=== PATIENT | female | born 1990 | race Caucasian/White ===

== ENCOUNTER 2016-06-01 15:32 | Inpatient (IN) | payer MEDICAID ==
[~2016-06-01] VITALS: Ht 165.1 cm; Wt 75.5 kg
[~2016-06-01 15:32] MED LIST: ARIP15TA3 PO; GABA-529 PO; GABA-533 PO; LITH300C3 PO; QUET100T33 PO; QUET25TA34 PO; VIST50 PO
[2016-06-01 16:07] VITALS: BP 129/70
[2016-06-01] MEDS ORDERED: QUET300T2 PO (16:40)
[2016-06-01] MEDS ORDERED: BUSP15 PO (16:40)
[2016-06-01] MEDS ORDERED: LITH600 PO (16:40)
[2016-06-01] MEDS ORDERED: QUET100T PO (16:40)
[2016-06-01] MEDS ORDERED: GABA-533 PO (16:40)
[2016-06-01 17:07] VITALS: BP 137/89
[2016-06-01] MEDS: LORazepam 2 MG TABLET PO PRN (17:24)
[2016-06-01] MEDS: OLANZapine 5 MG TABLET PO SCH (20:36)
[2016-06-01] MEDS: ZOLPIDEM TARTRATE 10 MG TABLET PO PRN (20:39)
[2016-06-02 06:35] VITALS: BP 112/61
[2016-06-02 08:01] LABS: BASOPHILS % (AUTO) 0.3 % (0.0-2.0); EOSINOPHILS % (AUTO) 3.6 % (1.0-6.0); HEMATOCRIT 38.3 % (36-46); HEMOGLOBIN 12.6 g/dL (12.0-16.0); LYMPHOCYTES # (AUTO) 2.6 K/uL (1.0-4.8); LYMPHOCYTES % (AUTO) 37.8 % (22.0-44.0); MEAN CORPUSCULAR HEMOGLOBIN 30.2 pg (26.0-34.0); MEAN CORPUSCULAR HGB CONC 32.8 G/dL (31.0-37.0); MEAN CORPUSCULAR VOLUME 92 fL (80-100); MONOCYTES # (AUTO) 0.8 K/uL (0.1-1.0); MONOCYTES % (AUTO) 11.8 % (2.0-9.0); NEUTROPHILS # (AUTO) 3.2 K/uL (1.8-7.7); NEUTROPHILS % (AUTO) 46.5 % (40.0-70.0); PLATELET COUNT (AUTO) 247 K/uL (150-450); RED BLOOD CELL COUNT(AUTO) 4.16 MIL/uL (4.00-5.20); RED CELL DISTRIBUTION WIDTH 12.8 % (11.5-14.5); WHITE BLOOD COUNT (AUTO) 6.9 K/uL (4.5-11.0)
[2016-06-02 08:18] VITALS: BP 112/67
[2016-06-02 08:21] LABS: ALANINE AMINOTRANSFERASE 58 U/L (12-78); ALBUMIN 3.6 g/dL (3.4-5.0); ANION GAP 9 mmol/L (8-16); ASPARTATE AMINOTRANSFERASE 23 U/L (15-37); BILIRUBIN,TOTAL 0.4 mg/dL (0.1-1.0); CALCIUM, TOTAL 8.9 mg/dL (8.8-10.5); CARBON DIOXIDE 26 mmol/L (22-29); CHLORIDE 106 mmol/L (98-107); CREATININE 0.81 mg/dL (0.60-1.30); GLOMERULAR FILTR. RATE CALC > 60 mL/min (>60); POTASSIUM 4.1 mmol/L (3.5-5.1); SODIUM SERUM 141 mmol/L (136-145); THYROID STIMULATING HORMONE 1.89 uIU/mL (0.36-3.74); TOTAL PROTEIN, SERUM 6.5 g/dL (6.4-8.2); UREA NITROGEN, BLOOD 9 mg/dL (7-18)
[2016-06-02 08:35] LABS: GLUCOSE, URINE (UA) NEGATIVE (NEGATIVE); KETONES,URINE NEGATIVE (NEGATIVE); LEUKOCYTE ESTERASE ,URINE NEGATIVE (NEGATIVE); OCCULT BLOOD,URINE NEGATIVE (NEGATIVE); PH,URINE 6.5 (5.0-8.0); PROTEIN,URINE NEGATIVE (NEGATIVE)
[2016-06-02 08:36] LABS: ADD UA MICROSCOPIC NO; APPEARANCE,URINE HAZY (CLEAR)
[2016-06-02] MEDS ORDERED: NICOTINE 14 MG/24 HOUR PATCH TD SCH (09:00)
[2016-06-02] MEDS ORDERED: FLUoxetine HCL 20 MG CAPSULE PO SCH (09:00)
[2016-06-02] MEDS: LITHIUM CARBONATE 300 MG CAPSULE PO SCH ×3 (09:35→17:05)
[2016-06-02] MEDS: LORazepam 2 MG TABLET PO PRN ×2 (09:42→15:47)
[2016-06-02] MEDS: QUEtiapine FUMARATE 100 MG TABLET PO PRN (10:15)
[2016-06-02 16:11] VITALS: BP 119/70
[2016-06-02] MEDS: OLANZapine 5 MG TABLET PO SCH (20:38)
[2016-06-02] MEDS: ZOLPIDEM TARTRATE 10 MG TABLET PO PRN (20:42)
[2016-06-03 00:18] VITALS: BP 101/62
[2016-06-03 07:01] VITALS: BP 118/160
[2016-06-03 08:05] VITALS: BP 112/54
[2016-06-03] MEDS: LITHIUM CARBONATE 300 MG CAPSULE PO SCH ×3 (08:48→17:12)
[2016-06-03] MEDS: FLUoxetine HCL 20 MG CAPSULE PO SCH (08:48)
[2016-06-03] MEDS: NICOTINE 21 MG/24 HOUR PATCH TD SCH (08:49)
[2016-06-03] MEDS: LORazepam 2 MG TABLET PO PRN ×3 (13:21→22:58)
[2016-06-03 16:20] VITALS: BP 125/75
[2016-06-03] MEDS: OLANZapine 5 MG TABLET PO SCH (20:36)
[2016-06-03] MEDS: ZOLPIDEM TARTRATE 10 MG TABLET PO PRN (20:36)
[2016-06-03] MEDS: QUEtiapine FUMARATE 100 MG TABLET PO PRN (21:21)
[2016-06-04 01:02] VITALS: BP 128/90
[2016-06-04 08:25] VITALS: BP 106/64
[2016-06-04] MEDS: FLUoxetine HCL 20 MG CAPSULE PO SCH (08:44)
[2016-06-04] MEDS: LITHIUM CARBONATE 300 MG CAPSULE PO SCH ×3 (08:44→16:06)
[2016-06-04] MEDS: NICOTINE 21 MG/24 HOUR PATCH TD SCH (08:44)
[2016-06-04] MEDS: LORazepam 2 MG TABLET PO PRN (11:15)
[2016-06-04 16:03] VITALS: BP 118/74
[2016-06-04] MEDS: OLANZapine 5 MG TABLET PO SCH (20:14)
[2016-06-04] MEDS: ZOLPIDEM TARTRATE 10 MG TABLET PO PRN (20:44)
[2016-06-05 06:33] VITALS: BP 127/80
[2016-06-05 08:03] VITALS: BP 122/61
[2016-06-05] MEDS ORDERED: OLAN5TAB2 PO (08:30)
[2016-06-05] MEDS: LITHIUM CARBONATE 300 MG CAPSULE PO SCH (08:30)
[2016-06-05] MEDS: FLUoxetine HCL 20 MG CAPSULE PO SCH (08:30)
[2016-06-05] MEDS: NICOTINE 21 MG/24 HOUR PATCH TD SCH (08:30)
[2016-06-05] MEDS ORDERED: FLUO-191 PO (08:30)
[2016-06-05] MEDS ORDERED: ACETAMINOPHEN 500 MG TABLET PO PRN (11:30)
== END 2016-06-05 11:15 | disposition home or self-care (01) | DRG 751 ==
LOC: B2S 16:27
PROVIDERS: ADMIT Psychiatry & Neurology Psychiatry; ATTEND Psychiatry & Neurology Psychiatry
DX: F33.2 Major depressive disorder, recurrent severe without psychotic features (principal); R45.851 Suicidal ideations; F15.20 Other stimulant dependence, uncomplicated; F41.9 Anxiety disorder, unspecified; F60.3 Borderline personality disorder; F17.200 Nicotine dependence, unspecified, uncomplicated; Z71.51 Drug abuse counseling and surveillance of drug abuser; Z97.5 Presence of (intrauterine) contraceptive device; Z88.0 Allergy status to penicillin; Z88.1 Allergy status to other antibiotic agents; Z88.8 Allergy status to other drugs, medicaments and biological substances; Z62.819 Personal history of unspecified abuse in childhood; Z91.5 Personal history of self-harm; Z87.440 Personal history of urinary (tract) infections; Z81.1 Family history of alcohol abuse and dependence; Z81.3 Family history of other psychoactive substance abuse and dependence
CPT/HCPCS: 80307; 84443

== ENCOUNTER 2018-03-07 17:15 | Inpatient (IN) | payer MEDICARE, MEDICAID ==
[~2018-03-07] VITALS: Ht 167.6 cm; Wt 54.4 kg
[~2018-03-07 17:15] MED LIST changes: -ARIP15TA3 PO; +FLUO-191 PO; -GABA-529 PO; -GABA-533 PO; -LITH300C3 PO; +LITH600 PO; +OLAN5TAB2 PO; -QUET100T33 PO; -QUET25TA34 PO; -VIST50 PO
[2018-03-07 18:27] VITALS: BP 114/71
[2018-03-07] MEDS ORDERED: HALOPERIDOL 5 MG TABLET PO PRN (19:00)
[2018-03-07 19:30] VITALS: BP 114/85
[2018-03-07] MEDS ORDERED: IBUPROFEN 400 MG TABLET PO PRN (20:15)
[2018-03-07] MEDS ORDERED: GuaiFENesin/D-METHORPHAN [SUGAR-FREE] 200-20MG/10 ML SYRUP UDCUP PO PRN (20:15)
[2018-03-07] MEDS ORDERED: ACETAMINOPHEN 325 MG TABLET PO PRN (20:15)
[2018-03-07] MEDS ORDERED: MAGNESIUM HYDROXIDE SUSPENSION 30 ML UDCUP PO PRN (20:15)
[2018-03-07] MEDS ORDERED: ALBUTEROL SULFATE HFA 90 MCG/PUFF 8 GM INHALER IH PRN (20:15)
[2018-03-07] MEDS ORDERED: PETROLATUM,WHITE 71 GM JELLY TP PRN (20:15)
[2018-03-07] MEDS ORDERED: ONDANSETRON HCL 4 MG TABLET PO PRN (20:15)
[2018-03-07] MEDS ORDERED: MAG HYDROX/AL HYDROX/SIMETH ES 30 ML SUSPENSION UDCUP PO PRN (20:15)
[2018-03-07] MEDS ORDERED: DOCUSATE SODIUM 100 MG CAPSULE PO PRN (20:15)
[2018-03-07] MEDS ORDERED: LOPERAMIDE HCL 2 MG CAPSULE PO PRN (20:15)
[2018-03-07] MEDS ORDERED: CloNIDine HCL 0.1 MG TABLET PO PRN (20:15)
[2018-03-07 20:30] VITALS: BP 111/60
[2018-03-07 21:30] VITALS: BP 111/63
[2018-03-07 22:36] VITALS: BP 110/65
[2018-03-08] VITALS (7 sets, daily range): BP systolic 103–122; BP diastolic 56–76
[2018-03-08 07:22] LABS: BASOPHILS % (AUTO) 0.6 % (0.0-2.0); EOSINOPHILS % (AUTO) 5.4 % (1.0-6.0); HEMATOCRIT 35.8 % (36-46); LYMPHOCYTES # (AUTO) 2.4 K/uL (1.0-4.8); LYMPHOCYTES % (AUTO) 43.4 % (22.0-44.0); MEAN CORPUSCULAR HEMOGLOBIN 29.8 pg (26.0-34.0); MEAN CORPUSCULAR HGB CONC 33.5 G/dL (31.0-37.0); MEAN CORPUSCULAR VOLUME 89 fL (80-100); MONOCYTES # (AUTO) 0.6 K/uL (0.1-1.0); MONOCYTES % (AUTO) 10.8 % (2.0-9.0); NEUTROPHILS # (AUTO) 2.2 K/uL (1.8-7.7); NEUTROPHILS % (AUTO) 39.8 % (40.0-70.0); PLATELET COUNT (AUTO) 325 K/uL (150-450); RED BLOOD CELL COUNT(AUTO) 4.02 MIL/uL (4.00-5.20); RED CELL DISTRIBUTION WIDTH 13.9 % (11.5-14.5)
[2018-03-08 07:59] LABS: ALANINE AMINOTRANSFERASE 240 U/L (12-78); ALBUMIN 3.3 g/dL (3.4-5.0); ALKALINE PHOSPHATASE 114 U/L (46-116); ANION GAP 5 mmol/L (8-16); ASPARTATE AMINOTRANSFERASE 190 U/L (15-37); BILIRUBIN,TOTAL 0.3 mg/dL (0.1-1.0); CALCIUM, TOTAL 8.7 mg/dL (8.8-10.5); CARBON DIOXIDE 31 mmol/L (22-29); CHLORIDE 104 mmol/L (98-107); CHOL/HDL RATIO 2.7 (3.9-5.7); CHOLESTEROL 152 mg/dL (131-200); CREATININE 0.76 mg/dL (0.60-1.30); FREE T4 (FREE THYROXINE) 0.85 ng/dL (0.76-1.46); GLOMERULAR FILTR. RATE CALC > 60 mL/min (>60); GLUCOSE,RANDOM 84 mg/dL (70-110); HCG,QUANTITATIVE < 1 mIU/mL (0-6); HDL CHOLESTEROL 56 mg/dL (40-60); LDL CHOL (CALC.) 76 mg/dL (0-130); POTASSIUM 4.4 mmol/L (3.5-5.1); SODIUM SERUM 140 mmol/L (136-145); THYROID STIMULATING HORMONE 0.42 uIU/mL (0.36-3.74); TOTAL PROTEIN, SERUM 6.6 g/dL (6.4-8.2); TRIGLYCERIDES 102 mg/dL (15-150); UREA NITROGEN, BLOOD 19 mg/dL (7-18)
[2018-03-08 08:01] LABS: HEMOGLOBIN A1C 5.5 % (4.5-6.2)
[2018-03-08] MEDS: METHADONE HCL 10 MG TABLET PO SCH (12:40)
[2018-03-08] MEDS: LORazepam 2 MG TABLET PO PRN (13:39)
[2018-03-08] MEDS: NICOTINE 14 MG/24 HOUR PATCH TD PRN (13:39)
[2018-03-08] MEDS: MIRTAZAPINE 15 MG TABLET PO SCH (20:34)
[2018-03-09 01:42] VITALS: BP 124/80
[2018-03-09 08:19] VITALS: BP 107/63
[2018-03-09] MEDS: ARIPiprazole 10 MG TABLET PO SCH (08:29)
[2018-03-09] MEDS: METHADONE HCL 10 MG TABLET PO SCH (08:29)
[2018-03-09 08:59] VITALS: BP 107/63
[2018-03-09 16:00] VITALS: BP 100/61
[2018-03-09 16:11] VITALS: BP 100/61
[2018-03-09] MEDS: MIRTAZAPINE 15 MG TABLET PO SCH (20:37)
[2018-03-10 04:08] VITALS: BP 115/74
[2018-03-10 08:01] VITALS: BP 130/79
[2018-03-10] MEDS: ARIPiprazole 10 MG TABLET PO SCH (08:08)
[2018-03-10] MEDS: METHADONE HCL 10 MG TABLET PO SCH (08:09)
[2018-03-10 08:12] VITALS: BP 130/79
[2018-03-10 16:29] VITALS: BP_SYST 100; BP_SYST 92; BP_DIAS 49; BP_DIAS 61
[2018-03-10] MEDS ORDERED: MIRTAZAPINE 30 MG TABLET PO SCH (21:00)
[2018-03-10 21:14] VITALS: BP 125/81
[2018-03-11] VITALS (11 sets, daily range): BP systolic 104–120; BP diastolic 60–81
[2018-03-11] MEDS ORDERED: ARIPiprazole 15 MG TABLET PO SCH (09:00)
[2018-03-11] MEDS ORDERED: CloNIDine HCL 0.1 MG TABLET PO PRN (11:00)
[2018-03-11] MEDS ORDERED: HydrOXYzine PAMOATE 50 MG CAPSULE PO PRN (11:00)
[2018-03-11] MEDS: CloNIDine HCL 0.1 MG TABLET PO SCH ×3 (12:55→20:45)
[2018-03-11] MEDS: MIRTAZAPINE 30 MG TABLET PO SCH (20:46)
[2018-03-11] MEDS ORDERED: MIRTAZAPINE 30 MG TABLET PO SCH (21:00)
[2018-03-12] VITALS (7 sets, daily range): BP systolic 91–116; BP diastolic 58–74
[2018-03-12] MEDS: CloNIDine HCL 0.1 MG TABLET PO SCH ×4 (06:15→21:28)
[2018-03-12] MEDS: ARIPiprazole 10 MG TABLET PO SCH (08:25)
[2018-03-12] MEDS: LORazepam 2 MG TABLET PO PRN (17:54)
[2018-03-12] MEDS: NICOTINE 14 MG/24 HOUR PATCH TD PRN (18:59)
[2018-03-12] MEDS: MIRTAZAPINE 30 MG TABLET PO SCH (20:31)
[2018-03-13] MEDS: CloNIDine HCL 0.1 MG TABLET PO SCH ×4 (06:00→21:10)
[2018-03-13 06:25] VITALS: BP 95/60
[2018-03-13] MEDS: ARIPiprazole 10 MG TABLET PO SCH (08:52)
[2018-03-13 09:01] VITALS: BP 108/60
[2018-03-13 12:35] VITALS: BP 101/63
[2018-03-13] MEDS: LORazepam 2 MG TABLET PO PRN (16:14)
[2018-03-13 16:39] VITALS: BP 119/66
[2018-03-13] MEDS ORDERED: HydrOXYzine PAMOATE 25 MG CAPSULE PO PRN (17:45)
[2018-03-13 21:10] VITALS: BP 106/62
[2018-03-13] MEDS: MIRTAZAPINE 30 MG TABLET PO SCH (21:10)
[2018-03-13] MEDS: QUEtiapine FUMARATE 200 MG TABLET PO SCH (21:10)
[2018-03-14] VITALS (8 sets, daily range): BP systolic 106–123; BP diastolic 60–77
[2018-03-14] MEDS: LORazepam 2 MG TABLET PO PRN ×3 (00:06→21:08)
[2018-03-14] MEDS: ZOLPIDEM TARTRATE 10 MG TABLET PO PRN (00:06)
[2018-03-14] MEDS: CloNIDine HCL 0.1 MG TABLET PO SCH ×4 (06:00→21:43)
[2018-03-14] MEDS ORDERED: QUEtiapine FUMARATE 100 MG TABLET PO SCH (09:00)
[2018-03-14] MEDS: QUEtiapine FUMARATE 100 MG TABLET PO SCH (16:22)
[2018-03-14] MEDS: QUEtiapine FUMARATE 200 MG TABLET PO SCH (20:30)
[2018-03-14] MEDS: MIRTAZAPINE 30 MG TABLET PO SCH (20:32)
[2018-03-14] MEDS ORDERED: METHADONE HCL 10 MG TABLET PO ONE (22:00)
[2018-03-15] VITALS (7 sets, daily range): BP systolic 100–119; BP diastolic 60–68
[2018-03-15] MEDS: CloNIDine HCL 0.1 MG TABLET PO SCH ×4 (06:20→21:24)
[2018-03-15] MEDS: QUEtiapine FUMARATE 100 MG TABLET PO SCH ×2 (08:24→17:01)
[2018-03-15] MEDS: METHADONE HCL 10 MG TABLET PO SCH (08:24)
[2018-03-15 09:25] LABS: APPEARANCE,URINE CLEAR (CLEAR); BILIRUBIN,URINE NEGATIVE (NEGATIVE); GLUCOSE, URINE (UA) NEGATIVE (NEGATIVE); KETONES,URINE NEGATIVE (NEGATIVE); LEUKOCYTE ESTERASE ,URINE SMALL (NEGATIVE); NITRATE,URINE NEGATIVE (NEGATIVE); OCCULT BLOOD,URINE NEGATIVE (NEGATIVE); PROTEIN,URINE NEGATIVE (NEGATIVE); UROBILINOGEN,URINE 0.2 mg/dL (<=1.0)
[2018-03-15 09:43] LABS: BACTERIA,URINE None Seen /HPF (None Seen); RBC,URINE None Seen /HPF (0-2)
[2018-03-15 09:44] LABS: RENAL EPITHELIAL CELLS,URINE Few /LPF (None Seen); SQUAMOUS EPITHELIAL CELL,UR Few /LPF (None Seen)
[2018-03-15] MEDS: MIRTAZAPINE 30 MG TABLET PO SCH (21:24)
[2018-03-15] MEDS: QUEtiapine FUMARATE 200 MG TABLET PO SCH (21:24)
[2018-03-16 00:20] VITALS: BP 114/64
[2018-03-16] MEDS: LORazepam 2 MG TABLET PO PRN (03:44)
[2018-03-16] MEDS: CloNIDine HCL 0.1 MG TABLET PO SCH ×4 (06:01→21:02)
[2018-03-16 08:14] VITALS: BP 108/62
[2018-03-16] MEDS: METHADONE HCL 10 MG TABLET PO SCH (10:44)
[2018-03-16] MEDS: QUEtiapine FUMARATE 100 MG TABLET PO SCH ×2 (10:44→16:30)
[2018-03-16 12:10] VITALS: BP 118/66
[2018-03-16 16:44] VITALS: BP 101/60
[2018-03-16] MEDS: QUEtiapine FUMARATE 200 MG TABLET PO SCH (20:17)
[2018-03-16] MEDS: MIRTAZAPINE 30 MG TABLET PO SCH (20:18)
[2018-03-16 21:02] VITALS: BP 103/56
[2018-03-17 01:10] VITALS: BP 100/75
[2018-03-17] MEDS: ZOLPIDEM TARTRATE 10 MG TABLET PO PRN (01:11)
[2018-03-17] MEDS: CloNIDine HCL 0.1 MG TABLET PO SCH ×4 (06:09→21:01)
[2018-03-17] MEDS: QUEtiapine FUMARATE 100 MG TABLET PO SCH ×2 (08:20→16:16)
[2018-03-17] MEDS: METHADONE HCL 10 MG TABLET PO SCH (08:20)
[2018-03-17 08:22] VITALS: BP 109/64
[2018-03-17 16:19] VITALS: BP 102/65
[2018-03-17] MEDS: MIRTAZAPINE 30 MG TABLET PO SCH (20:19)
[2018-03-17] MEDS: QUEtiapine FUMARATE 200 MG TABLET PO SCH (20:19)
[2018-03-17 21:00] VITALS: BP 107/62
[2018-03-18 05:45] VITALS: BP 110/68
[2018-03-18] MEDS: CloNIDine HCL 0.1 MG TABLET PO SCH (06:22)
[2018-03-18 08:00] VITALS: BP 119/75
[2018-03-18] MEDS ORDERED: QUET100T PO (08:05)
[2018-03-18] MEDS ORDERED: CLON-570 PO (08:05)
[2018-03-18] MEDS ORDERED: QUET200T PO (08:05)
[2018-03-18] MEDS ORDERED: MIRT15 PO (08:05)
[2018-03-18] MEDS: QUEtiapine FUMARATE 100 MG TABLET PO SCH (08:34)
[2018-03-18] MEDS: METHADONE HCL 10 MG TABLET PO SCH (08:34)
== END 2018-03-18 09:30 | disposition home or self-care (01) | DRG 885 ==
LOC: B2X 18:59
PROVIDERS: ADMIT Psychiatry & Neurology Psychiatry; ATTEND Psychiatry & Neurology Psychiatry
DX: F25.0 Schizoaffective disorder, bipolar type (principal); B18.2 Chronic viral hepatitis C; F11.20 Opioid dependence, uncomplicated; R45.851 Suicidal ideations; Z28.21 Immunization not carried out because of patient refusal; Z59.0 Homelessness; Z88.8 Allergy status to other drugs, medicaments and biological substances; Z86.73 Personal history of transient ischemic attack (TIA), and cerebral infarction without residual deficits; F41.9 Anxiety disorder, unspecified; Z88.1 Allergy status to other antibiotic agents; G47.00 Insomnia, unspecified; Z91.19 Patient's noncompliance with other medical treatment and regimen; Z91.5 Personal history of self-harm; F60.3 Borderline personality disorder; D64.9 Anemia, unspecified
CPT/HCPCS: 80074; 83036; 84439; 84443; Q0162

== ENCOUNTER 2018-04-20 14:40 | Inpatient (IN) | payer MEDICARE, MEDICAID ==
[~2018-04-20] VITALS: Ht 165.1 cm; Wt 56.5 kg
[~2018-04-20 14:40] MED LIST changes: +CLON-570 PO; -FLUO-191 PO; -LITH600 PO; +MIRT15 PO; -OLAN5TAB2 PO; +QUET100T PO; +QUET200T PO
[2018-04-20 16:25] VITALS: BP 124/75
[2018-04-20] MEDS ORDERED: MIRT15 PO (17:48)
[2018-04-20] MEDS ORDERED: QUET100T PO (17:48)
[2018-04-20] MEDS ORDERED: QUET200T PO (17:48)
[2018-04-20] MEDS ORDERED: METH10 PO (17:49)
[2018-04-20] MEDS ORDERED: HALOPERIDOL 5 MG TABLET PO PRN (18:15)
[2018-04-20] MEDS ORDERED: ZOLPIDEM TARTRATE 10 MG TABLET PO PRN (18:15)
[2018-04-20 18:30] VITALS: BP 124/80
[2018-04-20] MEDS ORDERED: ALBUTEROL SULFATE HFA 90 MCG/PUFF 8 GM INHALER IH PRN (19:30)
[2018-04-20] MEDS ORDERED: GuaiFENesin/D-METHORPHAN [SUGAR-FREE] 200-20MG/10 ML SYRUP UDCUP PO PRN (19:30)
[2018-04-20] MEDS ORDERED: PETROLATUM,WHITE 71 GM JELLY TP PRN (19:30)
[2018-04-20] MEDS ORDERED: MAG HYDROX/AL HYDROX/SIMETH ES 30 ML SUSPENSION UDCUP PO PRN (19:30)
[2018-04-20] MEDS ORDERED: -PHARMACY VACCINE NOTE- MISC ONE (19:30)
[2018-04-20] MEDS ORDERED: DOCUSATE SODIUM 100 MG CAPSULE PO PRN (19:30)
[2018-04-20] MEDS ORDERED: MAGNESIUM HYDROXIDE SUSPENSION 30 ML UDCUP PO PRN (19:30)
[2018-04-20] MEDS ORDERED: IBUPROFEN 400 MG TABLET PO PRN (19:30)
[2018-04-20] MEDS ORDERED: CloNIDine HCL 0.1 MG TABLET PO PRN (19:30)
[2018-04-20] MEDS ORDERED: ONDANSETRON HCL 4 MG TABLET PO PRN (19:30)
[2018-04-20] MEDS ORDERED: ACETAMINOPHEN 325 MG TABLET PO PRN (19:30)
[2018-04-20] MEDS ORDERED: LOPERAMIDE HCL 2 MG CAPSULE PO PRN (19:30)
[2018-04-20 19:31] VITALS: BP 112/65
[2018-04-20] MEDS: MIRTAZAPINE 15 MG TABLET PO SCH (20:23)
[2018-04-20] MEDS: QUEtiapine FUMARATE 200 MG TABLET PO SCH (20:23)
[2018-04-20 21:00] VITALS: BP 110/61
[2018-04-20 21:54] VITALS: BP 103/64
[2018-04-21] VITALS (8 sets, daily range): BP systolic 99–128; BP diastolic 62–82
[2018-04-21] MEDS: QUEtiapine FUMARATE 100 MG TABLET PO SCH ×2 (08:34→17:00)
[2018-04-21 08:38] LABS: BASOPHILS % (AUTO) 0.7 % (0.0-2.0); EOSINOPHILS % (AUTO) 6.3 % (1.0-6.0); HEMATOCRIT 37.5 % (36-46); HEMOGLOBIN 12.4 g/dL (12.0-16.0); LYMPHOCYTES # (AUTO) 2.5 K/uL (1.0-4.8); LYMPHOCYTES % (AUTO) 48.1 % (22.0-44.0); MEAN CORPUSCULAR HEMOGLOBIN 29.3 pg (26.0-34.0); MEAN CORPUSCULAR VOLUME 89 fL (80-100); MONOCYTES # (AUTO) 0.5 K/uL (0.1-1.0); MONOCYTES % (AUTO) 9.9 % (2.0-9.0); NEUTROPHILS # (AUTO) 1.8 K/uL (1.8-7.7); PLATELET COUNT (AUTO) 325 K/uL (150-450); RED BLOOD CELL COUNT(AUTO) 4.22 MIL/uL (4.00-5.20); RED CELL DISTRIBUTION WIDTH 13.2 % (11.5-14.5)
[2018-04-21 09:42] LABS: ALANINE AMINOTRANSFERASE 225 U/L (12-78); ALBUMIN 2.9 g/dL (3.4-5.0); ALKALINE PHOSPHATASE 145 U/L (46-116); ANION GAP 8 mmol/L (8-16); ASPARTATE AMINOTRANSFERASE 168 U/L (15-37); BILIRUBIN,TOTAL 0.2 mg/dL (0.1-1.0); CARBON DIOXIDE 28 mmol/L (22-29); CHLORIDE 106 mmol/L (98-107); CHOL/HDL RATIO 2.8 (3.9-5.7); CHOLESTEROL 138 mg/dL (131-200); CREATININE 0.63 mg/dL (0.60-1.30); FREE T4 (FREE THYROXINE) 0.86 ng/dL (0.76-1.46); GLOMERULAR FILTR. RATE CALC > 60 mL/min (>60); GLUCOSE,RANDOM 88 mg/dL (70-110); HCG,QUANTITATIVE < 1 mIU/mL (0-6); HDL CHOLESTEROL 49 mg/dL (40-60); LDL CHOL (CALC.) 73 mg/dL (0-130); POTASSIUM 4.4 mmol/L (3.5-5.1); SODIUM SERUM 142 mmol/L (136-145); THYROID STIMULATING HORMONE 0.36 uIU/mL (0.36-3.74); TOTAL PROTEIN, SERUM 6.9 g/dL (6.4-8.2); TRIGLYCERIDES 79 mg/dL (15-150); UREA NITROGEN, BLOOD 13 mg/dL (7-18)
[2018-04-21 12:48] LABS: HEMOGLOBIN A1C 5.9 % (4.5-6.2)
[2018-04-21] MEDS: MIRTAZAPINE 15 MG TABLET PO SCH (21:08)
[2018-04-21] MEDS: QUEtiapine FUMARATE 200 MG TABLET PO SCH (21:09)
[2018-04-22 04:29] VITALS: BP 118/78
[2018-04-22 04:30] VITALS: BP 118/78
[2018-04-22 08:43] VITALS: BP 117/68
[2018-04-22] MEDS: QUEtiapine FUMARATE 100 MG TABLET PO SCH ×2 (08:54→16:47)
[2018-04-22] MEDS: MULTIVITAMINS WITH MINERALS, THERAPEUTIC TABLET PO SCH (08:54)
[2018-04-22 09:05] LABS: APPEARANCE,URINE CLOUDY (CLEAR); BILIRUBIN,URINE NEGATIVE (NEGATIVE); GLUCOSE, URINE (UA) NEGATIVE (NEGATIVE); KETONES,URINE NEGATIVE (NEGATIVE); NITRATE,URINE NEGATIVE (NEGATIVE); PROTEIN,URINE NEGATIVE (NEGATIVE); UROBILINOGEN,URINE 0.2 mg/dL (<=1.0)
[2018-04-22 09:48] LABS: BACTERIA,URINE Many /HPF (None Seen); LEUKOCYTE ESTERASE ,URINE MODERATE (NEGATIVE); OCCULT BLOOD,URINE SMALL (NEGATIVE)
[2018-04-22 09:49] LABS: SQUAMOUS EPITHELIAL CELL,UR Many /LPF (None Seen)
[2018-04-22] MEDS: NICOTINE 14 MG/24 HOUR PATCH TD PRN (14:07)
[2018-04-22] MEDS: LORazepam 2 MG TABLET PO PRN (14:16)
[2018-04-22 16:22] VITALS: BP 119/65
[2018-04-22] MEDS: CEPHALEXIN MONOHYDRATE 500 MG CAPSULE PO SCH (16:47)
[2018-04-22] MEDS: QUEtiapine FUMARATE 200 MG TABLET PO SCH (20:29)
[2018-04-23 05:22] VITALS: BP 123/76
[2018-04-23 05:24] VITALS: BP 123/76
[2018-04-23 08:09] LABS: AMPHET/METH SCREEN,URINE POSITIVE (NEGATIVE); BARBITURATE SCREEN, URINE NEGATIVE (NEGATIVE); BENZODIAZEPINES SCREEN,URINE NEGATIVE (NEGATIVE); CANNABINOID SCREEN,URINE NEGATIVE (NEGATIVE); COCAINE SCREEN,URINE NEGATIVE (NEGATIVE); METHADONE SCREEN, URINE POSITIVE (NEGATIVE); OPIATE SCREEN,URINE NEGATIVE (NEGATIVE)
[2018-04-23 08:12] LABS: PHENCYCLIDINE SCREEN,URINE NEGATIVE (NEGATIVE)
[2018-04-23] MEDS: CEPHALEXIN MONOHYDRATE 500 MG CAPSULE PO SCH ×3 (08:40→16:39)
[2018-04-23] MEDS: QUEtiapine FUMARATE 100 MG TABLET PO SCH (08:41)
[2018-04-23] MEDS: MULTIVITAMINS WITH MINERALS, THERAPEUTIC TABLET PO SCH (08:41)
[2018-04-23] MEDS: NICOTINE 14 MG/24 HOUR PATCH TD PRN (08:55)
[2018-04-23 09:36] VITALS: BP 116/71
[2018-04-23 16:31] VITALS: BP 104/60
[2018-04-23 16:38] VITALS: BP 124/86
[2018-04-23] MEDS: LORazepam 2 MG TABLET PO PRN (16:39)
[2018-04-23 17:00] VITALS: BP 118/82
[2018-04-23] MEDS: QUEtiapine FUMARATE 200 MG TABLET PO SCH (20:29)
[2018-04-24] MEDS: LORazepam 2 MG TABLET PO PRN (00:18)
[2018-04-24 03:50] VITALS: BP 120/86
[2018-04-24 03:51] VITALS: BP 120/86
[2018-04-24 08:25] VITALS: BP 113/75
[2018-04-24] MEDS: QUEtiapine FUMARATE 100 MG TABLET PO SCH (08:33)
[2018-04-24] MEDS: MULTIVITAMINS WITH MINERALS, THERAPEUTIC TABLET PO SCH (08:33)
[2018-04-24] MEDS: CEPHALEXIN MONOHYDRATE 500 MG CAPSULE PO SCH ×3 (08:33→16:14)
[2018-04-24] MEDS ORDERED: CEPH500 PO (12:44)
[2018-04-24] MEDS ORDERED: QUET100T PO (15:54)
== END 2018-04-24 18:05 | disposition home or self-care (01) | DRG 881 ==
LOC: B2X 18:09
PROVIDERS: ADMIT Psychiatry & Neurology Psychiatry; ATTEND Psychiatry & Neurology Psychiatry
DX: F32.9 Major depressive disorder, single episode, unspecified (principal); B18.2 Chronic viral hepatitis C; R45.851 Suicidal ideations; F22 Delusional disorders; F41.9 Anxiety disorder, unspecified; G47.00 Insomnia, unspecified; Z86.73 Personal history of transient ischemic attack (TIA), and cerebral infarction without residual deficits
CPT/HCPCS: 80307; 83036; 84439; 84443; 87081; 87086

== ENCOUNTER 2018-06-05 13:43 | Inpatient (IN) | payer MEDICARE, MEDICAID ==
[~2018-06-05] VITALS: Ht 167.6 cm; Wt 59.0 kg
[2018-06-05] VITALS (9 sets, daily range): BP systolic 115–126; BP diastolic 68–87
[~2018-06-05 13:43] MED LIST changes: +CEPH500 PO; -CLON-570 PO; -MIRT15 PO
[2018-06-05] MEDS ORDERED: CloNIDine HCL 0.1 MG TABLET PO PRN ×2 (14:00→14:30)
[2018-06-05] MEDS ORDERED: MAG HYDROX/AL HYDROX/SIMETH ES 30 ML SUSPENSION UDCUP PO PRN ×2 (14:00→14:30)
[2018-06-05] MEDS ORDERED: LOPERAMIDE HCL 2 MG CAPSULE PO PRN ×2 (14:00→14:30)
[2018-06-05] MEDS ORDERED: CYANOCOBALAMIN 1,000 MCG/ML VIAL IM ONE (14:00)
[2018-06-05] MEDS ORDERED: GuaiFENesin/D-METHORPHAN [SUGAR-FREE] 200-20MG/10 ML SYRUP UDCUP PO PRN ×2 (14:00→14:30)
[2018-06-05] MEDS ORDERED: IBUPROFEN 600 MG TABLET PO PRN (14:00)
[2018-06-05] MEDS ORDERED: MAGNESIUM HYDROXIDE SUSPENSION 30 ML UDCUP PO PRN (14:30)
[2018-06-05] MEDS ORDERED: IBUPROFEN 400 MG TABLET PO PRN (14:30)
[2018-06-05] MEDS ORDERED: ONDANSETRON HCL 4 MG TABLET PO PRN (14:30)
[2018-06-05] MEDS ORDERED: DOCUSATE SODIUM 100 MG CAPSULE PO PRN (14:30)
[2018-06-05] MEDS ORDERED: NICOTINE 14 MG/24 HOUR PATCH TD PRN (14:30)
[2018-06-05] MEDS ORDERED: ALBUTEROL SULFATE HFA 90 MCG/PUFF 8 GM INHALER IH PRN (14:30)
[2018-06-05] MEDS ORDERED: ACETAMINOPHEN 325 MG TABLET PO PRN (14:30)
[2018-06-05] MEDS ORDERED: PETROLATUM,WHITE 71 GM JELLY TP PRN (14:30)
[2018-06-05] MEDS: HydrOXYzine PAMOATE 50 MG CAPSULE PO PRN ×2 (17:01→21:25)
[2018-06-05] MEDS: SULFAMETHOX/TRIMETH DS 800-160 MG/TABLET PO SCH (17:08)
[2018-06-05] MEDS: CloNIDine HCL 0.1 MG TABLET PO SCH ×2 (17:08→21:19)
[2018-06-05] MEDS: THIAMINE HCL 100 MG TABLET PO SCH (17:08)
[2018-06-05] MEDS: QUEtiapine FUMARATE 200 MG TABLET PO SCH (21:19)
[2018-06-06] VITALS (10 sets, daily range): BP systolic 100–119; BP diastolic 50–72
[2018-06-06] MEDS: QUEtiapine FUMARATE 25 MG TABLET PO PRN ×2 (01:44→16:19)
[2018-06-06] MEDS: CloNIDine HCL 0.1 MG TABLET PO SCH ×4 (06:40→21:11)
[2018-06-06] MEDS: THIAMINE HCL 100 MG TABLET PO SCH ×2 (08:30→16:03)
[2018-06-06] MEDS: QUEtiapine FUMARATE 100 MG TABLET PO SCH (08:30)
[2018-06-06] MEDS: LEVOFLOXACIN 500 MG TABLET PO SCH (08:30)
[2018-06-06] MEDS: SULFAMETHOX/TRIMETH DS 800-160 MG/TABLET PO SCH ×2 (08:30→16:03)
[2018-06-06] MEDS: MULTIVITAMINS WITH MINERALS, THERAPEUTIC TABLET PO SCH (08:30)
[2018-06-06] MEDS: FOLIC ACID 1 MG TABLET PO SCH (08:30)
[2018-06-06 09:05] LABS: BASOPHILS % (AUTO) 0.5 % (0.0-2.0); EOSINOPHILS % (AUTO) 5.2 % (1.0-6.0); HEMATOCRIT 35.4 % (36-46); HEMOGLOBIN 11.8 g/dL (12.0-16.0); LYMPHOCYTES # (AUTO) 2.4 K/uL (1.0-4.8); LYMPHOCYTES % (AUTO) 41.4 % (22.0-44.0); MEAN CORPUSCULAR HEMOGLOBIN 29.4 pg (26.0-34.0); MEAN CORPUSCULAR HGB CONC 33.4 G/dL (31.0-37.0); MEAN CORPUSCULAR VOLUME 88 fL (80-100); MONOCYTES # (AUTO) 0.9 K/uL (0.1-1.0); MONOCYTES % (AUTO) 15.2 % (2.0-9.0); NEUTROPHILS # (AUTO) 2.2 K/uL (1.8-7.7); NEUTROPHILS % (AUTO) 37.7 % (40.0-70.0); PLATELET COUNT (AUTO) 270 K/uL (150-450); RED BLOOD CELL COUNT(AUTO) 4.01 MIL/uL (4.00-5.20); RED CELL DISTRIBUTION WIDTH 12.6 % (11.5-14.5)
[2018-06-06 09:32] LABS: AMPHET/METH SCREEN,URINE POSITIVE (NEGATIVE); BARBITURATE SCREEN, URINE NEGATIVE (NEGATIVE); BENZODIAZEPINES SCREEN,URINE NEGATIVE (NEGATIVE); CANNABINOID SCREEN,URINE NEGATIVE (NEGATIVE); COCAINE SCREEN,URINE NEGATIVE (NEGATIVE); METHADONE SCREEN, URINE POSITIVE (NEGATIVE); OPIATE SCREEN,URINE POSITIVE (NEGATIVE)
[2018-06-06 09:36] LABS: PHENCYCLIDINE SCREEN,URINE NEGATIVE (NEGATIVE)
[2018-06-06 09:38] LABS: HEMOGLOBIN A1C 5.8 % (4.5-6.2)
[2018-06-06 09:46] LABS: APPEARANCE,URINE CLOUDY (CLEAR); BILIRUBIN,URINE NEGATIVE (NEGATIVE); GLUCOSE, URINE (UA) NEGATIVE (NEGATIVE); KETONES,URINE NEGATIVE (NEGATIVE); LEUKOCYTE ESTERASE ,URINE MODERATE (NEGATIVE); NITRATE,URINE NEGATIVE (NEGATIVE); OCCULT BLOOD,URINE LARGE (NEGATIVE); PROTEIN,URINE NEGATIVE (NEGATIVE)
[2018-06-06 09:50] LABS: ALANINE AMINOTRANSFERASE 257 U/L (12-78); ALBUMIN 3.2 g/dL (3.4-5.0); ALKALINE PHOSPHATASE 148 U/L (46-116); ANION GAP 9 mmol/L (8-16); ASPARTATE AMINOTRANSFERASE 176 U/L (15-37); BILIRUBIN,TOTAL 0.4 mg/dL (0.1-1.0); CALCIUM, TOTAL 9.1 mg/dL (8.8-10.5); CARBON DIOXIDE 26 mmol/L (22-29); CHLORIDE 105 mmol/L (98-107); CHOL/HDL RATIO 2.2 (3.9-5.7); CHOLESTEROL 142 mg/dL (131-200); CREATININE 0.68 mg/dL (0.60-1.30); FREE T4 (FREE THYROXINE) 0.76 ng/dL (0.76-1.46); GLOMERULAR FILTR. RATE CALC > 60 mL/min (>60); GLUCOSE,RANDOM 111 mg/dL (70-110); HCG,QUANTITATIVE < 1 mIU/mL (0-6); HDL CHOLESTEROL 66 mg/dL (40-60); LDL CHOL (CALC.) 65 mg/dL (0-130); POTASSIUM 4.1 mmol/L (3.5-5.1); SODIUM SERUM 140 mmol/L (136-145); THYROID STIMULATING HORMONE 0.83 uIU/mL (0.36-3.74); TOTAL PROTEIN, SERUM 6.8 g/dL (6.4-8.2); TRIGLYCERIDES 53 mg/dL (15-150); UREA NITROGEN, BLOOD 11 mg/dL (7-18)
[2018-06-06 10:08] LABS: BACTERIA,URINE Few /HPF (None Seen); RBC,URINE 0-2 /HPF (0-2); SQUAMOUS EPITHELIAL CELL,UR Few /LPF (None Seen)
[2018-06-06] MEDS: HydrOXYzine PAMOATE 50 MG CAPSULE PO PRN (15:24)
[2018-06-06] MEDS ORDERED: LORazepam 2 MG/ML VIAL ONE (16:49)
[2018-06-06] MEDS ORDERED: HALOPERIDOL LACTATE 5 MG/ML VIAL ONE (16:49)
[2018-06-06] MEDS ORDERED: DiphenhydrAMINE HCL 50 MG/ML VIAL ONE (16:49)
[2018-06-06] MEDS ORDERED: DiphenhydrAMINE HCL 50 MG/ML VIAL IM ONE (17:00)
[2018-06-06] MEDS ORDERED: HALOPERIDOL LACTATE 5 MG/ML VIAL IM ONE (17:00)
[2018-06-06] MEDS ORDERED: LORazepam 2 MG/ML VIAL IM ONE (17:00)
[2018-06-06] MEDS: NICOTINE 21 MG/24 HOUR PATCH TD SCH (17:04)
[2018-06-06] MEDS: QUEtiapine FUMARATE 200 MG TABLET PO SCH (21:12)
[2018-06-07 06:32] VITALS: BP 103/64
[2018-06-07] MEDS: CloNIDine HCL 0.1 MG TABLET PO SCH ×4 (06:42→21:17)
[2018-06-07] MEDS: THIAMINE HCL 100 MG TABLET PO SCH ×2 (08:23→16:24)
[2018-06-07] MEDS: FOLIC ACID 1 MG TABLET PO SCH (08:23)
[2018-06-07] MEDS: LEVOFLOXACIN 500 MG TABLET PO SCH (08:23)
[2018-06-07] MEDS: QUEtiapine FUMARATE 100 MG TABLET PO SCH (08:23)
[2018-06-07] MEDS: MULTIVITAMINS WITH MINERALS, THERAPEUTIC TABLET PO SCH (08:23)
[2018-06-07] MEDS: SULFAMETHOX/TRIMETH DS 800-160 MG/TABLET PO SCH ×2 (08:23→16:24)
[2018-06-07] MEDS: NICOTINE 21 MG/24 HOUR PATCH TD SCH (08:24)
[2018-06-07] MEDS ORDERED: METHADONE HCL 10 MG TABLET PO SCH (09:00)
[2018-06-07] MEDS: TraZODone HCL 100 MG TABLET PO SCH ×3 (09:47→16:24)
[2018-06-07 10:23] VITALS: BP 115/70
[2018-06-07] MEDS ORDERED: ONDANSETRON HCL 4 MG/2 ML VIAL IM ONE (14:45)
[2018-06-07 14:54] VITALS: BP 113/60
[2018-06-07] MEDS ORDERED: ONDANSETRON HCL 4 MG/2 ML VIAL IM PRN (15:00)
[2018-06-07 16:00] VITALS: BP 100/62
[2018-06-07 16:32] VITALS: BP 101/67
[2018-06-07] MEDS: QUEtiapine FUMARATE 200 MG TABLET PO SCH (20:15)
[2018-06-08 06:25] VITALS: BP 100/68
[2018-06-08] MEDS: CloNIDine HCL 0.1 MG TABLET PO SCH ×4 (06:26→21:14)
[2018-06-08 08:08] VITALS: BP 100/52
[2018-06-08] MEDS: LEVOFLOXACIN 500 MG TABLET PO SCH (08:12)
[2018-06-08] MEDS: SULFAMETHOX/TRIMETH DS 800-160 MG/TABLET PO SCH ×2 (08:12→16:19)
[2018-06-08] MEDS: QUEtiapine FUMARATE 100 MG TABLET PO SCH (08:12)
[2018-06-08] MEDS: TraZODone HCL 100 MG TABLET PO SCH ×3 (08:12→16:18)
[2018-06-08] MEDS: FOLIC ACID 1 MG TABLET PO SCH (08:12)
[2018-06-08] MEDS: THIAMINE HCL 100 MG TABLET PO SCH ×2 (08:12→16:18)
[2018-06-08] MEDS: MULTIVITAMINS WITH MINERALS, THERAPEUTIC TABLET PO SCH (08:12)
[2018-06-08] MEDS: NICOTINE 21 MG/24 HOUR PATCH TD SCH (08:13)
[2018-06-08 09:19] LABS: ALBUMIN 3.4 g/dL (3.4-5.0); BILIRUBIN,DIRECT 0.1 mg/dL (0.00-0.20); BILIRUBIN,TOTAL 0.3 mg/dL (0.1-1.0); TOTAL PROTEIN, SERUM 7.3 g/dL (6.4-8.2)
[2018-06-08 11:13] VITALS: BP 104/60
[2018-06-08 12:38] VITALS: BP 99/51
[2018-06-08] MEDS: ONDANSETRON HCL 4 MG TABLET PO PRN (13:51)
[2018-06-08 16:18] VITALS: BP 103/63
[2018-06-08 17:00] VITALS: BP 103/63
[2018-06-08] MEDS: QUEtiapine FUMARATE 200 MG TABLET PO SCH (20:27)
[2018-06-09 00:27] VITALS: BP 102/60
[2018-06-09] MEDS: CloNIDine HCL 0.1 MG TABLET PO SCH ×4 (06:41→22:24)
[2018-06-09 08:14] VITALS: BP 115/62
[2018-06-09] MEDS: QUEtiapine FUMARATE 100 MG TABLET PO SCH (08:18)
[2018-06-09] MEDS: FOLIC ACID 1 MG TABLET PO SCH (08:18)
[2018-06-09] MEDS: MULTIVITAMINS WITH MINERALS, THERAPEUTIC TABLET PO SCH (08:19)
[2018-06-09] MEDS: THIAMINE HCL 100 MG TABLET PO SCH ×2 (08:19→16:49)
[2018-06-09] MEDS: NICOTINE 21 MG/24 HOUR PATCH TD SCH ×3 (08:19→12:29)
[2018-06-09] MEDS: TraZODone HCL 100 MG TABLET PO SCH ×3 (08:19→16:49)
[2018-06-09 08:22] LABS: ALANINE AMINOTRANSFERASE 243 U/L (12-78); ALBUMIN 3.2 g/dL (3.4-5.0); ALKALINE PHOSPHATASE 136 U/L (46-116); ANION GAP 11 mmol/L (8-16); ASPARTATE AMINOTRANSFERASE 145 U/L (15-37); BILIRUBIN,TOTAL 0.3 mg/dL (0.1-1.0); CALCIUM, TOTAL 9.1 mg/dL (8.8-10.5); CARBON DIOXIDE 25 mmol/L (22-29); CHLORIDE 101 mmol/L (98-107); CREATININE 0.68 mg/dL (0.60-1.30); GLOMERULAR FILTR. RATE CALC > 60 mL/min (>60); GLUCOSE,RANDOM 99 mg/dL (70-110); LIPASE 74 U/L (73-393); POTASSIUM 4.2 mmol/L (3.5-5.1); SODIUM SERUM 137 mmol/L (136-145); TOTAL PROTEIN, SERUM 7.3 g/dL (6.4-8.2); UREA NITROGEN, BLOOD 11 mg/dL (7-18)
[2018-06-09] MEDS: LEVOFLOXACIN 500 MG TABLET PO SCH (09:45)
[2018-06-09] MEDS: SULFAMETHOX/TRIMETH DS 800-160 MG/TABLET PO SCH ×2 (09:51→16:49)
[2018-06-09 12:30] VITALS: BP 101/61
[2018-06-09 14:29] VITALS: BP 101/61
[2018-06-09] MEDS: ONDANSETRON HCL 4 MG TABLET PO PRN (15:01)
[2018-06-09] MEDS: QUEtiapine FUMARATE 25 MG TABLET PO PRN (15:01)
[2018-06-09 16:52] VITALS: BP 117/70
[2018-06-09 16:54] VITALS: BP 117/70
[2018-06-09] MEDS: QUEtiapine FUMARATE 200 MG TABLET PO SCH (20:39)
[2018-06-10 01:07] VITALS: BP 112/69
[2018-06-10] MEDS: CloNIDine HCL 0.1 MG TABLET PO SCH ×4 (06:00→21:36)
[2018-06-10 08:01] VITALS: BP 128/74
[2018-06-10 08:26] VITALS: BP 128/74
[2018-06-10] MEDS: NICOTINE 21 MG/24 HOUR PATCH TD SCH ×2 (08:39→09:00)
[2018-06-10] MEDS: TraZODone HCL 100 MG TABLET PO SCH ×3 (08:40→17:09)
[2018-06-10] MEDS: MULTIVITAMINS WITH MINERALS, THERAPEUTIC TABLET PO SCH (08:40)
[2018-06-10] MEDS: SULFAMETHOX/TRIMETH DS 800-160 MG/TABLET PO SCH ×2 (08:40→17:09)
[2018-06-10] MEDS: QUEtiapine FUMARATE 100 MG TABLET PO SCH (08:40)
[2018-06-10] MEDS: FOLIC ACID 1 MG TABLET PO SCH (08:40)
[2018-06-10] MEDS: THIAMINE HCL 100 MG TABLET PO SCH ×2 (08:40→17:09)
[2018-06-10] MEDS: LEVOFLOXACIN 500 MG TABLET PO SCH (08:40)
[2018-06-10] MEDS: ONDANSETRON HCL 4 MG TABLET PO PRN (12:38)
[2018-06-10 16:32] VITALS: BP 188/66
[2018-06-10 16:33] VITALS: BP 118/66
[2018-06-10 21:35] VITALS: BP 108/66
[2018-06-10] MEDS: MIRTAZAPINE 15 MG TABLET PO SCH (21:36)
[2018-06-10] MEDS: QUEtiapine FUMARATE 200 MG TABLET PO SCH (21:36)
[2018-06-10] MEDS: HydrOXYzine PAMOATE 50 MG CAPSULE PO PRN (22:18)
[2018-06-11] MEDS: CloNIDine HCL 0.1 MG TABLET PO SCH ×4 (06:00→21:07)
[2018-06-11 06:14] VITALS: BP 102/60
[2018-06-11] MEDS: QUEtiapine FUMARATE 100 MG TABLET PO SCH (08:28)
[2018-06-11] MEDS: FOLIC ACID 1 MG TABLET PO SCH (08:28)
[2018-06-11] MEDS: TraZODone HCL 100 MG TABLET PO SCH ×3 (08:28→16:41)
[2018-06-11] MEDS: THIAMINE HCL 100 MG TABLET PO SCH ×2 (08:28→16:41)
[2018-06-11] MEDS: SULFAMETHOX/TRIMETH DS 800-160 MG/TABLET PO SCH ×2 (08:28→16:41)
[2018-06-11] MEDS: MULTIVITAMINS WITH MINERALS, THERAPEUTIC TABLET PO SCH (08:28)
[2018-06-11] MEDS: NICOTINE 21 MG/24 HOUR PATCH TD SCH (08:29)
[2018-06-11] MEDS: LEVOFLOXACIN 500 MG TABLET PO SCH (08:30)
[2018-06-11 08:40] VITALS: BP 116/62
[2018-06-11] MEDS ORDERED: FOLIC ACID 1 MG TABLET PO SCH (09:00)
[2018-06-11] MEDS ORDERED: THIAMINE HCL 100 MG TABLET PO SCH (09:00)
[2018-06-11 16:03] VITALS: BP 112/69
[2018-06-11 21:05] VITALS: BP 118/64
[2018-06-11] MEDS: MIRTAZAPINE 15 MG TABLET PO SCH (21:07)
[2018-06-11] MEDS: QUEtiapine FUMARATE 200 MG TABLET PO SCH (21:07)
[2018-06-11] MEDS: HydrOXYzine PAMOATE 50 MG CAPSULE PO PRN (22:00)
[2018-06-11] MEDS: QUEtiapine FUMARATE 25 MG TABLET PO PRN (23:50)
[2018-06-12 00:21] VITALS: BP 110/79
[2018-06-12] MEDS: CloNIDine HCL 0.1 MG TABLET PO SCH (05:40)
[2018-06-12] MEDS ORDERED: BACTDSB PO (08:37)
[2018-06-12] MEDS ORDERED: LEVO500 PO (08:38)
[2018-06-12] MEDS ORDERED: MIRT15 PO (08:38)
[2018-06-12] MEDS: QUEtiapine FUMARATE 100 MG TABLET PO SCH (08:49)
[2018-06-12] MEDS: THIAMINE HCL 100 MG TABLET PO SCH (08:49)
[2018-06-12] MEDS: FOLIC ACID 1 MG TABLET PO SCH (08:49)
[2018-06-12] MEDS: MULTIVITAMINS WITH MINERALS, THERAPEUTIC TABLET PO SCH (08:49)
[2018-06-12] MEDS: NICOTINE 21 MG/24 HOUR PATCH TD SCH (08:51)
[2018-06-12] MEDS: SULFAMETHOX/TRIMETH DS 800-160 MG/TABLET PO SCH (10:50)
[2018-06-12] MEDS: LEVOFLOXACIN 500 MG TABLET PO SCH (10:50)
== END 2018-06-12 11:20 | disposition home or self-care (01) | DRG 885 ==
LOC: B2S 14:04
PROVIDERS: ADMIT Psychiatry & Neurology Psychiatry; ATTEND Psychiatry & Neurology Psychiatry
DX: F20.0 Paranoid schizophrenia (principal); L03.113 Cellulitis of right upper limb; F41.9 Anxiety disorder, unspecified; F32.9 Major depressive disorder, single episode, unspecified; D64.9 Anemia, unspecified; B18.2 Chronic viral hepatitis C; F19.10 Other psychoactive substance abuse, uncomplicated; F10.10 Alcohol abuse, uncomplicated; Y90.9 Presence of alcohol in blood, level not specified; Z88.1 Allergy status to other antibiotic agents; Z71.51 Drug abuse counseling and surveillance of drug abuser; Z86.73 Personal history of transient ischemic attack (TIA), and cerebral infarction without residual deficits; Z88.8 Allergy status to other drugs, medicaments and biological substances
CPT/HCPCS: 83036; 84439; 84443; 90686; J1200; J1630; J2060; J2405; J3420; Q0162

== ENCOUNTER 2018-07-15 21:00 | Inpatient (IN) | payer MEDICARE, MEDICAID ==
[~2018-07-15] VITALS: Ht 167.6 cm; Wt 60.0 kg
[2018-07-15] MEDS: CloNIDine HCL 0.1 MG TABLET PO SCH (00:56)
[~2018-07-15 21:00] MED LIST changes: +BACTDSB PO; -CEPH500 PO; +LEVO500 PO; +MIRT15 PO
[2018-07-15] MEDS ORDERED: HydrOXYzine PAMOATE 50 MG CAPSULE PO PRN (22:00)
[2018-07-15] MEDS ORDERED: CYANOCOBALAMIN 1,000 MCG/ML VIAL IM ONE (22:00)
[2018-07-15] MEDS ORDERED: IBUPROFEN 600 MG TABLET PO PRN (22:00)
[2018-07-15] MEDS ORDERED: GuaiFENesin/D-METHORPHAN [SUGAR-FREE] 200-20MG/10 ML SYRUP UDCUP PO PRN (22:00)
[2018-07-15] MEDS ORDERED: CloNIDine HCL 0.1 MG TABLET PO PRN (22:00)
[2018-07-15] MEDS ORDERED: LOPERAMIDE HCL 2 MG CAPSULE PO PRN (22:00)
[2018-07-15 22:23] VITALS: BP 103/66
[2018-07-16] VITALS (12 sets, daily range): BP systolic 97–123; BP diastolic 57–81
[2018-07-16] MEDS: QUEtiapine FUMARATE 100 MG TABLET PO PRN ×3 (00:55→23:41)
[2018-07-16] MEDS: CloNIDine HCL 0.1 MG TABLET PO SCH ×4 (05:56→22:00)
[2018-07-16 08:29] LABS: BASOPHILS % (AUTO) 0.4 % (0.0-2.0); EOSINOPHILS % (AUTO) 2.8 % (1.0-6.0); HEMATOCRIT 36.6 % (36-46); LYMPHOCYTES # (AUTO) 2.5 K/uL (1.0-4.8); LYMPHOCYTES % (AUTO) 34.5 % (22.0-44.0); MEAN CORPUSCULAR HEMOGLOBIN 28.9 pg (26.0-34.0); MEAN CORPUSCULAR HGB CONC 32.8 G/dL (31.0-37.0); MEAN CORPUSCULAR VOLUME 88 fL (80-100); MONOCYTES # (AUTO) 0.7 K/uL (0.1-1.0); MONOCYTES % (AUTO) 9.5 % (2.0-9.0); NEUTROPHILS # (AUTO) 3.8 K/uL (1.8-7.7); NEUTROPHILS % (AUTO) 52.8 % (40.0-70.0); PLATELET COUNT (AUTO) 359 K/uL (150-450); RED BLOOD CELL COUNT(AUTO) 4.16 MIL/uL (4.00-5.20); RED CELL DISTRIBUTION WIDTH 13.4 % (11.5-14.5)
[2018-07-16] MEDS: THIAMINE HCL 100 MG TABLET PO SCH ×2 (08:54→16:36)
[2018-07-16] MEDS: FOLIC ACID 1 MG TABLET PO SCH (08:54)
[2018-07-16] MEDS: QUEtiapine FUMARATE 100 MG TABLET PO SCH (08:54)
[2018-07-16] MEDS: MULTIVITAMINS WITH MINERALS, THERAPEUTIC TABLET PO SCH (08:54)
[2018-07-16 08:55] LABS: ALANINE AMINOTRANSFERASE 337 U/L (12-78); ALBUMIN 3.3 g/dL (3.4-5.0); ALKALINE PHOSPHATASE 159 U/L (46-116); ANION GAP 8 mmol/L (8-16); ASPARTATE AMINOTRANSFERASE 274 U/L (15-37); BILIRUBIN,TOTAL 0.5 mg/dL (0.1-1.0); CALCIUM, TOTAL 9.1 mg/dL (8.8-10.5); CARBON DIOXIDE 28 mmol/L (22-29); CHLORIDE 104 mmol/L (98-107); CHOLESTEROL 139 mg/dL (131-200); CREATININE 0.67 mg/dL (0.60-1.30); FREE T4 (FREE THYROXINE) 0.97 ng/dL (0.76-1.46); GLOMERULAR FILTR. RATE CALC > 60 mL/min (>60); GLUCOSE,RANDOM 100 mg/dL (70-110); HCG,QUANTITATIVE < 1 mIU/mL (0-6); HDL CHOLESTEROL 47 mg/dL (40-60); LDL CHOL (CALC.) 78 mg/dL (0-130); POTASSIUM 4.5 mmol/L (3.5-5.1); SODIUM SERUM 140 mmol/L (136-145); THYROID STIMULATING HORMONE 0.49 uIU/mL (0.36-3.74); TOTAL PROTEIN, SERUM 6.5 g/dL (6.4-8.2); TRIGLYCERIDES 70 mg/dL (15-150); UREA NITROGEN, BLOOD 16 mg/dL (7-18)
[2018-07-16] MEDS: ACAMPROSATE CALCIUM 333 MG DR TABLET PO SCH ×2 (13:00→16:36)
[2018-07-16] MEDS: HydrOXYzine PAMOATE 50 MG CAPSULE PO PRN (17:12)
[2018-07-16] MEDS ORDERED: HALOPERIDOL LACTATE 5 MG/ML VIAL ONE (18:50)
[2018-07-16] MEDS ORDERED: DiphenhydrAMINE HCL 50 MG/ML VIAL ONE (18:51)
[2018-07-16] MEDS ORDERED: LORazepam 2 MG/ML VIAL ONE (18:51)
[2018-07-16] MEDS ORDERED: HALOPERIDOL LACTATE 5 MG/ML VIAL IM ONE (19:15)
[2018-07-16] MEDS ORDERED: DiphenhydrAMINE HCL 50 MG/ML VIAL IM ONE (19:15)
[2018-07-16] MEDS ORDERED: LORazepam 2 MG/ML VIAL IM ONE (19:15)
[2018-07-16] MEDS: MIRTAZAPINE 15 MG TABLET PO SCH (20:33)
[2018-07-16] MEDS: QUEtiapine FUMARATE 200 MG TABLET PO SCH (20:33)
[2018-07-17] VITALS (9 sets, daily range): BP systolic 104–116; BP diastolic 60–75
[2018-07-17] MEDS: CloNIDine HCL 0.1 MG TABLET PO SCH ×4 (06:02→21:22)
[2018-07-17] MEDS: MULTIVITAMINS WITH MINERALS, THERAPEUTIC TABLET PO SCH (08:59)
[2018-07-17] MEDS: ACAMPROSATE CALCIUM 333 MG DR TABLET PO SCH ×3 (08:59→17:11)
[2018-07-17] MEDS: FOLIC ACID 1 MG TABLET PO SCH (08:59)
[2018-07-17] MEDS: QUEtiapine FUMARATE 100 MG TABLET PO SCH (09:00)
[2018-07-17] MEDS: THIAMINE HCL 100 MG TABLET PO SCH ×2 (09:00→17:11)
[2018-07-17] MEDS: MIRTAZAPINE 15 MG TABLET PO SCH (21:22)
[2018-07-17] MEDS: QUEtiapine FUMARATE 200 MG TABLET PO SCH (21:22)
[2018-07-18] VITALS (7 sets, daily range): BP systolic 98–115; BP diastolic 55–74
[2018-07-18] MEDS: CloNIDine HCL 0.1 MG TABLET PO SCH ×4 (06:06→21:19)
[2018-07-18] MEDS: ACAMPROSATE CALCIUM 333 MG DR TABLET PO SCH ×3 (08:22→17:19)
[2018-07-18] MEDS: MULTIVITAMINS WITH MINERALS, THERAPEUTIC TABLET PO SCH (08:23)
[2018-07-18] MEDS: FOLIC ACID 1 MG TABLET PO SCH (08:23)
[2018-07-18] MEDS: QUEtiapine FUMARATE 100 MG TABLET PO SCH ×2 (08:23→17:19)
[2018-07-18] MEDS: THIAMINE HCL 100 MG TABLET PO SCH ×2 (08:23→17:19)
[2018-07-18] MEDS: LORazepam 2 MG TABLET PO PRN (17:19)
[2018-07-18] MEDS: QUEtiapine FUMARATE 300 MG TABLET PO SCH (21:19)
[2018-07-18] MEDS: MIRTAZAPINE 15 MG TABLET PO SCH (21:19)
[2018-07-19 00:18] VITALS: BP 123/70
[2018-07-19 01:31] VITALS: BP 110/72
[2018-07-19] MEDS: LORazepam 2 MG TABLET PO PRN (01:34)
[2018-07-19] MEDS: ZOLPIDEM TARTRATE 10 MG TABLET PO PRN ×2 (01:34→22:55)
[2018-07-19] MEDS: QUEtiapine FUMARATE 100 MG TABLET PO PRN (03:35)
[2018-07-19] MEDS: CloNIDine HCL 0.1 MG TABLET PO SCH ×4 (06:21→21:17)
[2018-07-19 08:20] VITALS: BP 103/55
[2018-07-19] MEDS: FOLIC ACID 1 MG TABLET PO SCH (08:26)
[2018-07-19] MEDS: THIAMINE HCL 100 MG TABLET PO SCH ×2 (08:26→16:33)
[2018-07-19] MEDS: MULTIVITAMINS WITH MINERALS, THERAPEUTIC TABLET PO SCH (08:26)
[2018-07-19] MEDS: ACAMPROSATE CALCIUM 333 MG DR TABLET PO SCH ×3 (08:26→16:33)
[2018-07-19] MEDS: QUEtiapine FUMARATE 100 MG TABLET PO SCH ×2 (08:26→16:33)
[2018-07-19 12:15] VITALS: BP 106/62
[2018-07-19] MEDS: HydrOXYzine PAMOATE 50 MG CAPSULE PO PRN (15:57)
[2018-07-19 16:05] VITALS: BP 113/70
[2018-07-19 21:15] VITALS: BP 115/66
[2018-07-19] MEDS: QUEtiapine FUMARATE 300 MG TABLET PO SCH (21:17)
[2018-07-19] MEDS: MIRTAZAPINE 15 MG TABLET PO SCH (21:17)
[2018-07-20] VITALS (7 sets, daily range): BP systolic 105–121; BP diastolic 61–73
[2018-07-20] MEDS: MAG HYDROX/AL HYDROX/SIMETH ES 30 ML SUSPENSION UDCUP PO PRN (05:38)
[2018-07-20] MEDS: CloNIDine HCL 0.1 MG TABLET PO SCH ×4 (06:15→21:12)
[2018-07-20] MEDS: FOLIC ACID 1 MG TABLET PO SCH (08:23)
[2018-07-20] MEDS: THIAMINE HCL 100 MG TABLET PO SCH ×2 (08:23→16:56)
[2018-07-20] MEDS: QUEtiapine FUMARATE 100 MG TABLET PO SCH ×2 (08:24→17:07)
[2018-07-20] MEDS: ACAMPROSATE CALCIUM 333 MG DR TABLET PO SCH ×3 (08:24→16:56)
[2018-07-20] MEDS: MULTIVITAMINS WITH MINERALS, THERAPEUTIC TABLET PO SCH (08:24)
[2018-07-20] MEDS ORDERED: ONDANSETRON HCL 4 MG TABLET PO PRN (09:45)
[2018-07-20] MEDS: LOPERAMIDE HCL 2 MG CAPSULE PO PRN ×2 (13:24→20:45)
[2018-07-20] MEDS: HydrOXYzine PAMOATE 50 MG CAPSULE PO PRN (15:51)
[2018-07-20] MEDS: MIRTAZAPINE 15 MG TABLET PO SCH (20:45)
[2018-07-20] MEDS: QUEtiapine FUMARATE 300 MG TABLET PO SCH (20:45)
[2018-07-21] MEDS: ZOLPIDEM TARTRATE 10 MG TABLET PO PRN ×2 (01:18→21:26)
[2018-07-21 01:20] VITALS: BP 113/77
[2018-07-21] MEDS: CloNIDine HCL 0.1 MG TABLET PO SCH (05:44)
[2018-07-21 08:11] VITALS: BP 122/69
[2018-07-21] MEDS: MULTIVITAMINS WITH MINERALS, THERAPEUTIC TABLET PO SCH (08:29)
[2018-07-21] MEDS: THIAMINE HCL 100 MG TABLET PO SCH ×2 (08:29→16:38)
[2018-07-21] MEDS: QUEtiapine FUMARATE 100 MG TABLET PO SCH ×2 (08:29→16:38)
[2018-07-21] MEDS: FOLIC ACID 1 MG TABLET PO SCH (08:29)
[2018-07-21] MEDS: ACAMPROSATE CALCIUM 333 MG DR TABLET PO SCH ×3 (08:29→16:38)
[2018-07-21] MEDS: LOPERAMIDE HCL 2 MG CAPSULE PO PRN ×2 (10:00→21:26)
[2018-07-21] MEDS: LORazepam 2 MG TABLET PO PRN (12:30)
[2018-07-21 16:19] VITALS: BP 105/67
[2018-07-21] MEDS: MAG HYDROX/AL HYDROX/SIMETH ES 30 ML SUSPENSION UDCUP PO PRN (18:45)
[2018-07-21] MEDS: MIRTAZAPINE 15 MG TABLET PO SCH (20:46)
[2018-07-21] MEDS: QUEtiapine FUMARATE 300 MG TABLET PO SCH (20:46)
[2018-07-22] MEDS: LOPERAMIDE HCL 2 MG CAPSULE PO PRN ×2 (04:14→12:37)
[2018-07-22] MEDS: MAG HYDROX/AL HYDROX/SIMETH ES 30 ML SUSPENSION UDCUP PO PRN (04:18)
[2018-07-22 04:20] VITALS: BP 125/87
[2018-07-22 08:13] VITALS: BP 121/83
[2018-07-22] MEDS: FOLIC ACID 1 MG TABLET PO SCH (08:35)
[2018-07-22] MEDS: THIAMINE HCL 100 MG TABLET PO SCH (08:35)
[2018-07-22] MEDS: MULTIVITAMINS WITH MINERALS, THERAPEUTIC TABLET PO SCH (08:35)
[2018-07-22] MEDS: ACAMPROSATE CALCIUM 333 MG DR TABLET PO SCH ×2 (08:35→12:37)
[2018-07-22] MEDS: QUEtiapine FUMARATE 100 MG TABLET PO SCH (08:35)
[2018-07-22] MEDS ORDERED: QUET100T PO (12:42)
[2018-07-22] MEDS ORDERED: QUET300T2 PO (12:42)
[2018-07-22] MEDS ORDERED: ACAM333T7 PO (12:42)
== END 2018-07-22 13:35 | disposition home or self-care (01) | DRG 885 ==
LOC: B2X 21:56 → EDSTATUS 22:08
PROVIDERS: ADMIT Psychiatry & Neurology Psychiatry; ATTEND Psychiatry & Neurology Psychiatry
DX: F33.3 Major depressive disorder, recurrent, severe with psychotic symptoms (principal); B19.20 Unspecified viral hepatitis C without hepatic coma; F10.20 Alcohol dependence, uncomplicated; Y90.9 Presence of alcohol in blood, level not specified; Z59.0 Homelessness; Z88.8 Allergy status to other drugs, medicaments and biological substances; Z88.1 Allergy status to other antibiotic agents; Z91.19 Patient's noncompliance with other medical treatment and regimen
CPT/HCPCS: 83036; 84439; 84443; J1200; J1630; J2060; J3420; Q0162

== ENCOUNTER 2019-12-17 06:22 | Inpatient (IN) | payer OTHER, MEDICAID ==
[~2019-12-17 06:22] MED LIST changes: -BACTDSB PO; -LEVO500 PO; -MIRT15 PO; -QUET200T PO
[2019-12-17 07:00] VITALS: BP 124/74
[2019-12-17] MEDS ORDERED: HALOPERIDOL 5 MG TABLET PO PRN (07:30)
[2019-12-17 13:41] VITALS: BP 106/59
[2019-12-17 13:47] VITALS: BP 106/59
[2019-12-17 16:06] VITALS: BP 106/60
[2019-12-17] MEDS ORDERED: CloNIDine HCL 0.1 MG TABLET PO PRN (21:15)
[2019-12-17] MEDS ORDERED: HydrOXYzine PAMOATE 50 MG CAPSULE PO PRN (21:15)
[2019-12-17] MEDS ORDERED: IBUPROFEN 600 MG TABLET PO PRN (21:15)
[2019-12-17] MEDS ORDERED: MAG HYDROX/AL HYDROX/SIMETH ES 30 ML SUSPENSION UDCUP PO PRN (21:15)
[2019-12-17] MEDS: CloNIDine HCL 0.1 MG TABLET PO SCH (21:58)
[2019-12-17] MEDS: QUEtiapine FUMARATE 100 MG TABLET PO SCH (21:58)
[2019-12-18] VITALS (8 sets, daily range): BP systolic 83–124; BP diastolic 62–81
[2019-12-18] MEDS: CloNIDine HCL 0.1 MG TABLET PO SCH ×4 (06:23→22:23)
[2019-12-18] MEDS: QUEtiapine FUMARATE 100 MG TABLET PO SCH ×2 (08:27→22:23)
[2019-12-18] MEDS ORDERED: DOCUSATE SODIUM 100 MG CAPSULE PO PRN (08:30)
[2019-12-18] MEDS ORDERED: OMEPRAZOLE 20 MG CAPSULE PO PRN (08:30)
[2019-12-18] MEDS ORDERED: IBUPROFEN 600 MG TABLET PO PRN (08:30)
[2019-12-18] MEDS ORDERED: PETROLATUM,WHITE 28 GM JELLY TP PRN (08:30)
[2019-12-18] MEDS ORDERED: ALBUTEROL SULFATE HFA 90 MCG/PUFF 8 GM INHALER IH PRN (08:30)
[2019-12-18] MEDS ORDERED: MAGNESIUM HYDROXIDE SUSPENSION 30 ML UDCUP PO PRN (08:30)
[2019-12-18] MEDS ORDERED: BENZOCAINE/MENTHOL LOZENGE PO PRN (08:30)
[2019-12-18] MEDS ORDERED: LOPERAMIDE HCL 2 MG CAPSULE PO PRN (08:30)
[2019-12-18] MEDS ORDERED: ACETAMINOPHEN 325 MG TABLET PO PRN (08:30)
[2019-12-18] MEDS ORDERED: ONDANSETRON HCL 4 MG TABLET PO PRN (08:30)
[2019-12-18] MEDS ORDERED: BACITRACIN 28 GM OINTMENT TP PRN (08:30)
[2019-12-18] MEDS ORDERED: QUEtiapine FUMARATE 100 MG TABLET PO SCH (09:00)
[2019-12-18] MEDS: LORazepam 2 MG TABLET PO PRN (14:37)
[2019-12-19] VITALS (10 sets, daily range): BP systolic 95–129; BP diastolic 54–84
[2019-12-19] MEDS: ZOLPIDEM TARTRATE 10 MG TABLET PO PRN ×2 (01:51→22:21)
[2019-12-19] MEDS: CloNIDine HCL 0.1 MG TABLET PO SCH ×4 (06:00→21:04)
[2019-12-19 07:40] LABS: AMPHET/METH SCREEN,URINE POSITIVE (NEGATIVE); BARBITURATE SCREEN, URINE NEGATIVE (NEGATIVE); BENZODIAZEPINES SCREEN,URINE NEGATIVE (NEGATIVE); CANNABINOID SCREEN,URINE NEGATIVE (NEGATIVE); COCAINE SCREEN,URINE NEGATIVE (NEGATIVE); METHADONE SCREEN, URINE NEGATIVE (NEGATIVE); OPIATE SCREEN,URINE POSITIVE (NEGATIVE)
[2019-12-19 07:41] LABS: PHENCYCLIDINE SCREEN,URINE NEGATIVE (NEGATIVE)
[2019-12-19] MEDS: QUEtiapine FUMARATE 100 MG TABLET PO SCH ×2 (08:07→21:04)
[2019-12-20] VITALS (9 sets, daily range): BP systolic 90–111; BP diastolic 56–70
[2019-12-20] MEDS: CloNIDine HCL 0.1 MG TABLET PO SCH ×4 (06:24→22:22)
[2019-12-20] MEDS: QUEtiapine FUMARATE 100 MG TABLET PO SCH ×2 (08:50→20:34)
[2019-12-20] MEDS: LORazepam 2 MG TABLET PO PRN (16:33)
[2019-12-21 00:43] VITALS: BP 116/65
[2019-12-21 03:22] VITALS: BP 105/72
[2019-12-21] MEDS: CloNIDine HCL 0.1 MG TABLET PO SCH ×2 (06:29→11:00)
[2019-12-21 06:30] VITALS: BP 114/65
[2019-12-21] MEDS: QUEtiapine FUMARATE 100 MG TABLET PO SCH (08:08)
[2019-12-21 08:23] VITALS: BP 109/59
== END 2019-12-21 13:40 | disposition home or self-care (01) | DRG 885 ==
LOC: B2S 07:00 → B3A 12-18 07:50
PROVIDERS: ADMIT Psychiatry & Neurology Psychiatry; ATTEND Psychiatry & Neurology Psychiatry
DX: F25.9 Schizoaffective disorder, unspecified (principal); B19.20 Unspecified viral hepatitis C without hepatic coma; F41.9 Anxiety disorder, unspecified; G47.00 Insomnia, unspecified; F15.10 Other stimulant abuse, uncomplicated; K59.00 Constipation, unspecified; D64.9 Anemia, unspecified; Z88.8 Allergy status to other drugs, medicaments and biological substances
CPT/HCPCS: 80307; 87081

== ENCOUNTER 2019-12-17 09:24 | Emergency (ER) | payer OTHER ==
[~2019-12-17] VITALS: Ht 162.6 cm; Wt 72.7 kg
[2019-12-17 09:53] VITALS: BP 112/61
[2019-12-17 11:10] LABS: COVID AG,FIA SOURCE NASOPHARYNGEAL
== END 2019-12-17 12:46 | disposition home or self-care (01) ==
LOC: EMS 09:25
DX: F25.9 Schizoaffective disorder, unspecified (principal); F41.9 Anxiety disorder, unspecified; F32.9 Major depressive disorder, single episode, unspecified; F17.210 Nicotine dependence, cigarettes, uncomplicated; F14.90 Cocaine use, unspecified, uncomplicated; F11.90 Opioid use, unspecified, uncomplicated; Z20.828 Contact with and (suspected) exposure to other viral communicable diseases; Z88.0 Allergy status to penicillin; Z88.8 Allergy status to other drugs, medicaments and biological substances
CPT/HCPCS: 87426

== ENCOUNTER 2020-01-28 07:37 | Emergency (ER) | payer OTHER ==
[~2020-01-28] VITALS: Ht 165.1 cm; Wt 50.0 kg
[2020-01-28 08:25] LABS: COVID AG,FIA SOURCE NASOPHARYNGEAL
[2020-01-28 09:45] VITALS: BP 114/72
== END 2020-01-28 09:56 | disposition home or self-care (01) ==
LOC: EMS 08:16
DX: Z20.828 Contact with and (suspected) exposure to other viral communicable diseases (principal); F41.9 Anxiety disorder, unspecified; F32.9 Major depressive disorder, single episode, unspecified; F20.9 Schizophrenia, unspecified; F17.210 Nicotine dependence, cigarettes, uncomplicated; F14.90 Cocaine use, unspecified, uncomplicated; F11.90 Opioid use, unspecified, uncomplicated; Z88.1 Allergy status to other antibiotic agents; Z88.8 Allergy status to other drugs, medicaments and biological substances
CPT/HCPCS: 87426

== ENCOUNTER 2021-02-12 20:50 | Emergency (ER) | payer OTHER ==
[~2021-02-12] VITALS: Ht 165.1 cm; Wt 59.0 kg
[~2021-02-12 20:50] MED LIST changes: +FERR-89 PO; +PREN-217 PO; -QUET100T PO
[2021-02-12 22:17] VITALS: BP 133/90
[2021-02-12] MEDS ORDERED: HALOPERIDOL 5 MG TABLET PO PRN (22:45)
[2021-02-12] MEDS ORDERED: LORazepam 2 MG TABLET PO PRN (22:45)
[2021-02-12] MEDS ORDERED: ZOLPIDEM TARTRATE 10 MG TABLET PO PRN (22:45)
[2021-02-12 22:52] LABS: COVID AG,FIA SOURCE NASOPHARYNGEAL
[2021-02-12 23:00] LABS: APPEARANCE,URINE CLEAR (CLEAR); BILIRUBIN,URINE NEGATIVE (NEGATIVE); GLUCOSE, URINE (UA) NEGATIVE (NEGATIVE); KETONES,URINE NEGATIVE (NEGATIVE); LEUKOCYTE ESTERASE ,URINE SMALL (NEGATIVE); NITRATE,URINE POSITIVE (NEGATIVE); OCCULT BLOOD,URINE LARGE (NEGATIVE); PH,URINE 5.5 (5.0-8.0); PROTEIN,URINE TRACE (NEGATIVE); UROBILINOGEN,URINE 0.2 mg/dL (<=1.0)
[2021-02-12 23:04] LABS: AMPHET/METH SCREEN,URINE POSITIVE (NEGATIVE); BACTERIA,URINE Moderate /HPF (None Seen); BARBITURATE SCREEN, URINE NEGATIVE (NEGATIVE); BENZODIAZEPINES SCREEN,URINE NEGATIVE (NEGATIVE); CANNABINOID SCREEN,URINE NEGATIVE (NEGATIVE); COCAINE SCREEN,URINE NEGATIVE (NEGATIVE); METHADONE SCREEN, URINE NEGATIVE (NEGATIVE); OPIATE SCREEN,URINE NEGATIVE (NEGATIVE); PHENCYCLIDINE SCREEN,URINE NEGATIVE (NEGATIVE); WBC,URINE 26-50 /HPF (0-5)
[2021-02-12] MEDS ORDERED: LORazepam 2 MG TABLET PO ONE (23:15)
[2021-02-12 23:40] LABS: BASOPHILS % (AUTO) 0.6 % (0.0-2.0); HEMATOCRIT 36.8 % (36-46); HEMOGLOBIN 12.5 g/dL (12.0-16.0); LYMPHOCYTES % (AUTO) 31.2 % (22.0-44.0); MEAN CORPUSCULAR HEMOGLOBIN 29.2 pg (26.0-34.0); MEAN CORPUSCULAR HGB CONC 33.8 G/dL (31.0-37.0); MEAN CORPUSCULAR VOLUME 86 fL (80-100); MONOCYTES # (AUTO) 0.6 K/uL (0.1-1.0); MONOCYTES % (AUTO) 6.3 % (2.0-9.0); NEUTROPHILS # (AUTO) 5.8 K/uL (1.8-7.7); NEUTROPHILS % (AUTO) 60.9 % (40.0-70.0); PLATELET COUNT (AUTO) 529 K/uL (150-450); RED BLOOD CELL COUNT(AUTO) 4.27 MIL/uL (4.00-5.20); RED CELL DISTRIBUTION WIDTH 14.8 % (11.5-14.5)
[2021-02-12 23:48] LABS: ANION GAP 8 mmol/L (8-16); CALCIUM, TOTAL 9.6 mg/dL (8.8-10.5); CARBON DIOXIDE 29 mmol/L (22-29); CHLORIDE 102 mmol/L (98-107); CREATININE 0.84 mg/dL (0.60-1.30); GLOMERULAR FILTR. RATE CALC > 60 mL/min (>60); GLUCOSE,RANDOM 61 mg/dL (70-110); POTASSIUM 3.8 mmol/L (3.5-5.1); SODIUM SERUM 139 mmol/L (136-145); UREA NITROGEN, BLOOD 15 mg/dL (7-18)
[2021-02-12 23:54] LABS: ALANINE AMINOTRANSFERASE 56 U/L (12-78); ALBUMIN 3.9 g/dL (3.4-5.0); ALKALINE PHOSPHATASE 226 U/L (46-116); ASPARTATE AMINOTRANSFERASE 50 U/L (15-37); BILIRUBIN,TOTAL 0.4 mg/dL (0.1-1.0); TOTAL PROTEIN, SERUM 9.2 g/dL (6.4-8.2)
[2021-02-13] LABS: HCG,QUANTITATIVE 49 mIU/mL (0-6)
== END 2021-02-12 23:10 | disposition home or self-care (01) ==
LOC: EMS 20:50
DX: F15.988 Other stimulant use, unspecified with other stimulant-induced disorder (principal); F25.0 Schizoaffective disorder, bipolar type; Z88.1 Allergy status to other antibiotic agents; Z79.899 Other long term (current) drug therapy; Z20.822 Contact with and (suspected) exposure to COVID-19
CPT/HCPCS: 36415; 80053; 80307; 81001; 84702; 85025; 87077; 87086; 87186; 87426; 99283; G0480

== ENCOUNTER 2021-04-03 05:21 | Inpatient (IN) | payer OTHER, MEDICAID ==
[~2021-04-03] VITALS: Ht 165.1 cm; Wt 54.5 kg
[2021-04-03 06:53] LABS: BASOPHILS % (AUTO) 0.3 % (0.0-2.0); EOSINOPHILS % (AUTO) 2.4 % (1.0-6.0); HEMATOCRIT 36.2 % (36-46); LYMPHOCYTES % (AUTO) 25.6 % (22.0-44.0); MEAN CORPUSCULAR VOLUME 85 fL (80-100); MONOCYTES # (AUTO) 0.6 K/uL (0.1-1.0); NEUTROPHILS # (AUTO) 5.1 K/uL (1.8-7.7); NEUTROPHILS % (AUTO) 63.7 % (40.0-70.0); PLATELET COUNT (AUTO) 337 K/uL (150-450); RED BLOOD CELL COUNT(AUTO) 4.26 MIL/uL (4.00-5.20); RED CELL DISTRIBUTION WIDTH 14.2 % (11.5-14.5)
[2021-04-03 07:02] LABS: ANION GAP 6 mmol/L (8-16); CALCIUM, TOTAL 9.3 mg/dL (8.8-10.5); CARBON DIOXIDE 27 mmol/L (22-29); CHLORIDE 105 mmol/L (98-107); CREATININE 0.74 mg/dL (0.60-1.30); GLOMERULAR FILTR. RATE CALC > 60 mL/min (>60); GLUCOSE,RANDOM 116 mg/dL (70-110); POTASSIUM 3.4 mmol/L (3.5-5.1); SODIUM SERUM 138 mmol/L (136-145); UREA NITROGEN, BLOOD 14 mg/dL (7-18)
[2021-04-03 07:13] LABS: ALANINE AMINOTRANSFERASE 120 U/L (12-78); ALBUMIN 3.8 g/dL (3.4-5.0); ALKALINE PHOSPHATASE 139 U/L (46-116); ASPARTATE AMINOTRANSFERASE 65 U/L (15-37); BILIRUBIN,TOTAL 0.7 mg/dL (0.1-1.0); HCG,QUANTITATIVE 1 mIU/mL (0-6); TOTAL PROTEIN, SERUM 8.1 g/dL (6.4-8.2)
[2021-04-03] MEDS ORDERED: DiphenhydrAMINE HCL 50 MG/ML VIAL IM ONE (08:45)
[2021-04-03] MEDS ORDERED: HALOPERIDOL LACTATE 5 MG/ML VIAL IM ONE (08:45)
[2021-04-03] MEDS ORDERED: LORazepam 2 MG/ML VIAL IM ONE (08:45)
[2021-04-03] MEDS ORDERED: OLANZapine 5 MG RAPDIS TABLET PO PRN (09:45)
[2021-04-03] MEDS ORDERED: ACETAMINOPHEN 325 MG TABLET PO PRN (09:45)
[2021-04-03] MEDS ORDERED: ZOLPIDEM TARTRATE 10 MG TABLET PO PRN (09:45)
[2021-04-03] MEDS ORDERED: GuaiFENesin/D-METHORPHAN [SUGAR-FREE] 200-20MG/10 ML SYRUP UDCUP PO PRN (09:45)
[2021-04-03] MEDS ORDERED: MAG HYDROX/AL HYDROX/SIMETH ES 30 ML SUSPENSION UDCUP PO PRN (09:45)
[2021-04-03] MEDS ORDERED: PALIPERIDONE PALMITATE 234 MG/1.5 ML SYRINGE IM ONE (09:45)
[2021-04-03] MEDS ORDERED: LOPERAMIDE HCL 2 MG CAPSULE PO PRN (09:45)
[2021-04-03] MEDS ORDERED: HydrOXYzine PAMOATE 50 MG CAPSULE PO PRN (09:45)
[2021-04-03] MEDS ORDERED: TUBERCULIN, PURIFIED PROTEIN DERIVATIVE 5 TU/0.1 ML SYRINGE ID ONE (09:45)
[2021-04-03] MEDS ORDERED: LORazepam 2 MG TABLET PO PRN (09:45)
[2021-04-03] MEDS ORDERED: MAGNESIUM HYDROXIDE SUSPENSION 30 ML UDCUP PO PRN (09:45)
[2021-04-03] MEDS ORDERED: PROMETHAZINE HCL 25 MG TABLET PO PRN (09:45)
[2021-04-03 10:41] LABS: COVID AG,FIA SOURCE NASOPHARYNGEAL
[2021-04-03 19:12] VITALS: BP 126/60
[2021-04-03] MEDS: OLANZapine 5 MG RAPDIS TABLET PO SCH (20:13)
[2021-04-03] MEDS: MELATONIN 5 MG TABLET PO SCH (20:13)
[2021-04-03] MEDS: THIAMINE 100 MG TABLET PO SCH (20:13)
[2021-04-03] MEDS ORDERED: INFLUENZA VIRUS VACCINE QVS 2021-22 (6MO+)/PF 60 MCG/0.5 ML SYRINGE IM. ONE (20:30)
[2021-04-04 08:00] VITALS: BP 104/61
[2021-04-04 08:18] LABS: HEMOGLOBIN A1C 5.7 % (3.8-5.6)
[2021-04-04] MEDS: FLUoxetine HCL 20 MG CAPSULE PO SCH (08:18)
[2021-04-04] MEDS: THIAMINE 100 MG TABLET PO SCH ×2 (08:18→16:39)
[2021-04-04] MEDS: FOLIC ACID 1 MG TABLET PO SCH (08:18)
[2021-04-04] MEDS: OMEGA-3/DHA/EPA/FISH OIL 1,000 MG CAPSULE PO SCH (08:20)
[2021-04-04] MEDS: MULTIVITAMINS WITH MINERALS, THERAPEUTIC TABLET PO SCH (08:20)
[2021-04-04] MEDS: NICOTINE 14 MG/24 HOUR PATCH TD SCH (08:25)
[2021-04-04 08:41] LABS: CHOL/HDL RATIO 2.4 (3.9-5.7); FREE T4 (FREE THYROXINE) 1.12 ng/dL (0.76-1.46); POTASSIUM 3.5 mmol/L (3.5-5.1); THYROID STIMULATING HORMONE 0.25 uIU/mL (0.36-3.74)
[2021-04-04] MEDS ORDERED: NALTREXONE HCL 50 MG TABLET PO SCH (09:00)
[2021-04-04 09:40] VITALS: BP 104/65
[2021-04-04] MEDS ORDERED: IBUPROFEN 600 MG TABLET PO PRN (09:45)
[2021-04-04] MEDS ORDERED: CloNIDine HCL 0.1 MG TABLET PO PRN (09:45)
[2021-04-04] MEDS ORDERED: MAG HYDROX/AL HYDROX/SIMETH ES 30 ML SUSPENSION UDCUP PO PRN (09:45)
[2021-04-04] MEDS ORDERED: CYANOCOBALAMIN 1,000 MCG/ML VIAL IM ONE (09:45)
[2021-04-04] MEDS ORDERED: HydrOXYzine PAMOATE 50 MG CAPSULE PO PRN (09:45)
[2021-04-04] MEDS: DIAZEPAM 10 MG TABLET PO PRN ×2 (10:09→13:20)
[2021-04-04 10:40] VITALS: BP 129/73
[2021-04-04 11:40] VITALS: BP 135/87
[2021-04-04] MEDS: CloNIDine HCL 0.1 MG TABLET PO SCH ×3 (12:31→22:07)
[2021-04-04 12:40] VITALS: BP 138/84
[2021-04-04 15:41] LABS: GLUCOMETER DEV NAME(LOC) 3E.C; GLUCOSE,POINT OF CARE 112 MG/DL (70-110)
[2021-04-04 16:26] VITALS: BP 138/66
[2021-04-04] MEDS ORDERED: NALT50TA PO (20:21)
[2021-04-04] MEDS ORDERED: PROZ20 PO (20:21)
[2021-04-04] MEDS ORDERED: OMEG-135 PO (20:21)
[2021-04-04] MEDS ORDERED: MELA5TAB40 PO (20:21)
[2021-04-04] MEDS ORDERED: CLON0.1T2 PO (20:21)
[2021-04-04] MEDS ORDERED: OLAN5TAB94 PO (20:21)
[2021-04-04] MEDS: OLANZapine 5 MG RAPDIS TABLET PO SCH (20:43)
[2021-04-04] MEDS: MELATONIN 5 MG TABLET PO SCH (21:00)
[2021-04-04] MEDS ORDERED: ONDANSETRON HCL 4 MG TABLET PO PRN (22:00)
[2021-04-05] MEDS: CloNIDine HCL 0.1 MG TABLET PO SCH ×4 (06:05→21:12)
[2021-04-05 06:09] VITALS: BP 118/89
[2021-04-05] MEDS ORDERED: DIAZEPAM 10 MG TABLET PO PRN (07:00)
[2021-04-05 08:00] VITALS: BP 137/91
[2021-04-05] MEDS ORDERED: DIAZEPAM 10 MG TABLET PO SCH (09:00)
[2021-04-05] MEDS: FLUoxetine HCL 20 MG CAPSULE PO SCH (09:00)
[2021-04-05] MEDS: OMEGA-3/DHA/EPA/FISH OIL 1,000 MG CAPSULE PO SCH (09:00)
[2021-04-05] MEDS: FOLIC ACID 1 MG TABLET PO SCH (09:00)
[2021-04-05] MEDS: MULTIVITAMINS WITH MINERALS, THERAPEUTIC TABLET PO SCH (09:00)
[2021-04-05] MEDS: THIAMINE 100 MG TABLET PO SCH ×2 (09:00→16:22)
[2021-04-05] MEDS: NICOTINE 14 MG/24 HOUR PATCH TD SCH (10:21)
[2021-04-05 16:29] VITALS: BP 115/73
[2021-04-05] MEDS: MELATONIN 5 MG TABLET PO SCH (21:00)
[2021-04-05 21:14] VITALS: BP 120/78
[2021-04-06] MEDS: CloNIDine HCL 0.1 MG TABLET PO SCH ×3 (06:00→16:40)
[2021-04-06] MEDS: MULTIVITAMINS WITH MINERALS, THERAPEUTIC TABLET PO SCH (10:31)
[2021-04-06] MEDS: FOLIC ACID 1 MG TABLET PO SCH (10:32)
[2021-04-06] MEDS: THIAMINE 100 MG TABLET PO SCH ×2 (10:32→16:39)
[2021-04-06] MEDS: FLUoxetine HCL 20 MG CAPSULE PO SCH (10:32)
[2021-04-06] MEDS: OMEGA-3/DHA/EPA/FISH OIL 1,000 MG CAPSULE PO SCH (10:32)
[2021-04-06] MEDS: NICOTINE 14 MG/24 HOUR PATCH TD SCH (10:32)
[2021-04-06 16:37] VITALS: BP 124/80
[2021-04-07] MEDS ORDERED: DIAZEPAM 5 MG TABLET PO PRN (07:00)
[2021-04-07] MEDS ORDERED: DIAZEPAM 5 MG TABLET PO SCH (09:00)
[2021-04-07] MEDS ORDERED: PALIPERIDONE PALMITATE 156 MG/ML SYRINGE IM ONE (09:00)
[2021-04-08] MEDS ORDERED: DIAZEPAM 5 MG TABLET PO PRN (07:00)
== END 2021-04-06 18:00 | disposition home or self-care (01) | DRG 885 ==
LOC: EMS 05:22 → 3EC 09:43
PROVIDERS: ADMIT Psychiatry & Neurology Psychiatry; ATTEND Psychiatry & Neurology Psychiatry
DX: F25.9 Schizoaffective disorder, unspecified (principal); B19.20 Unspecified viral hepatitis C without hepatic coma; F12.90 Cannabis use, unspecified, uncomplicated; Z20.822 Contact with and (suspected) exposure to COVID-19; F17.210 Nicotine dependence, cigarettes, uncomplicated; J44.9 Chronic obstructive pulmonary disease, unspecified; F15.10 Other stimulant abuse, uncomplicated; Z55.9 Problems related to education and literacy, unspecified; Z59.9 Problem related to housing and economic circumstances, unspecified; Z63.9 Problem related to primary support group, unspecified; Z65.3 Problems related to other legal circumstances; Z88.8 Allergy status to other drugs, medicaments and biological substances; Z79.899 Other long term (current) drug therapy; Z59.00 Homelessness unspecified
CPT/HCPCS: 80053; 80061; 82962; 83036; 84132; 84439; 84443; 84702; 85025; 86592; 99285; G0480; J1200; J1630; J2060; J3420; Q9967

== ENCOUNTER 2021-05-17 15:22 | Inpatient (IN) | payer OTHER, MEDICAID ==
[~2021-05-17] VITALS: Ht 165.1 cm; Wt 59.1 kg
[~2021-05-17 15:22] MED LIST changes: +CLON0.1T2 PO; -FERR-89 PO; +MELA5TAB40 PO; +OLAN5TAB94 PO; +OMEG-108 PO; -PREN-217 PO; +PROZ20 PO
[2021-05-17] MEDS ORDERED: HALOPERIDOL LACTATE 5 MG/ML VIAL IM ONE (16:15)
[2021-05-17] MEDS ORDERED: LORazepam 2 MG/ML VIAL IM ONE (16:15)
[2021-05-17] MEDS ORDERED: DiphenhydrAMINE HCL 50 MG/ML VIAL IM ONE (16:15)
[2021-05-17] MEDS ORDERED: LORazepam 2 MG TABLET PO PRN (17:00)
[2021-05-17] MEDS ORDERED: HALOPERIDOL 5 MG TABLET PO PRN (17:00)
[2021-05-17] MEDS ORDERED: ZOLPIDEM TARTRATE 10 MG TABLET PO PRN (17:00)
[2021-05-17 17:34] LABS: BASOPHILS % (AUTO) 0.3 % (0.0-2.0); EOSINOPHILS % (AUTO) 4.1 % (1.0-6.0); HEMATOCRIT 37.7 % (36-46); HEMOGLOBIN 12.4 g/dL (12.0-16.0); LYMPHOCYTES # (AUTO) 2.2 K/uL (1.0-4.8); LYMPHOCYTES % (AUTO) 33.9 % (22.0-44.0); MEAN CORPUSCULAR HEMOGLOBIN 28.5 pg (26.0-34.0); MEAN CORPUSCULAR HGB CONC 32.8 G/dL (31.0-37.0); MEAN CORPUSCULAR VOLUME 87 fL (80-100); MONOCYTES # (AUTO) 0.5 K/uL (0.1-1.0); MONOCYTES % (AUTO) 7.6 % (2.0-9.0); NEUTROPHILS # (AUTO) 3.5 K/uL (1.8-7.7); NEUTROPHILS % (AUTO) 54.1 % (40.0-70.0); PLATELET COUNT (AUTO) 318 K/uL (150-450); RED BLOOD CELL COUNT(AUTO) 4.33 MIL/uL (4.00-5.20); RED CELL DISTRIBUTION WIDTH 13.3 % (11.5-14.5)
[2021-05-17 17:46] LABS: ANION GAP 6 mmol/L (8-16); CALCIUM, TOTAL 9.8 mg/dL (8.8-10.5); CARBON DIOXIDE 30 mmol/L (22-29); CHLORIDE 101 mmol/L (98-107); CREATININE 0.79 mg/dL (0.60-1.30); GLOMERULAR FILTR. RATE CALC > 60 mL/min (>60); GLUCOSE,RANDOM 80 mg/dL (70-110); SODIUM SERUM 137 mmol/L (136-145); UREA NITROGEN, BLOOD 16 mg/dL (7-18)
[2021-05-17 17:58] LABS: ALANINE AMINOTRANSFERASE 54 U/L (12-78); ALBUMIN 4.2 g/dL (3.4-5.0); ALKALINE PHOSPHATASE 116 U/L (46-116); ASPARTATE AMINOTRANSFERASE 38 U/L (15-37); BILIRUBIN,TOTAL 0.6 mg/dL (0.1-1.0); HCG,QUANTITATIVE < 1 mIU/mL (0-6); TOTAL PROTEIN, SERUM 8.5 g/dL (6.4-8.2)
[2021-05-17 19:04] LABS: COVID AG,FIA SOURCE NASOPHARYNGEAL
[2021-05-17] MEDS ORDERED: INFLUENZA VIRUS VACCINE QVS 2021-22 (6MO+)/PF 60 MCG/0.5 ML SYRINGE IM. ONE (23:45)
[2021-05-18 00:46] VITALS: BP 102/60
[2021-05-18] MEDS ORDERED: ONDANSETRON HCL 4 MG TABLET PO PRN (06:00)
[2021-05-18] MEDS ORDERED: BENZOCAINE/MENTHOL LOZENGE PO PRN (06:00)
[2021-05-18] MEDS ORDERED: DOCUSATE SODIUM 100 MG CAPSULE PO PRN (06:00)
[2021-05-18] MEDS ORDERED: LOPERAMIDE HCL 2 MG CAPSULE PO PRN (06:00)
[2021-05-18] MEDS ORDERED: CloNIDine HCL 0.1 MG TABLET PO PRN (06:00)
[2021-05-18] MEDS ORDERED: MAGNESIUM HYDROXIDE SUSPENSION 30 ML UDCUP PO PRN (06:00)
[2021-05-18] MEDS ORDERED: IBUPROFEN 600 MG TABLET PO PRN (06:00)
[2021-05-18] MEDS ORDERED: OMEPRAZOLE 20 MG CAPSULE PO PRN (06:00)
[2021-05-18] MEDS ORDERED: MAG HYDROX/AL HYDROX/SIMETH ES 30 ML SUSPENSION UDCUP PO PRN (06:00)
[2021-05-18] MEDS ORDERED: PETROLATUM,WHITE 28 GM JELLY TP PRN (06:00)
[2021-05-18] MEDS ORDERED: BACITRACIN 28 GM OINTMENT TP PRN (06:00)
[2021-05-18] MEDS ORDERED: ACETAMINOPHEN 325 MG TABLET PO PRN (06:00)
[2021-05-18] MEDS ORDERED: ALBUTEROL SULFATE HFA 90 MCG/PUFF 8 GM INHALER IH PRN (06:00)
[2021-05-18] MEDS: OMEGA-3/DHA/EPA/FISH OIL 1,000 MG CAPSULE PO SCH (08:13)
[2021-05-18 08:17] VITALS: BP 110/63
[2021-05-18] MEDS: OLANZapine 7.5 MG TABLET PO SCH (20:41)
[2021-05-19 06:06] VITALS: BP 104/62
[2021-05-19] MEDS: OMEGA-3/DHA/EPA/FISH OIL 1,000 MG CAPSULE PO SCH (08:36)
[2021-05-19 09:13] VITALS: BP 113/79
[2021-05-19] MEDS: OLANZapine 7.5 MG TABLET PO SCH (20:51)
[2021-05-20 08:54] VITALS: BP 112/75
[2021-05-20] MEDS: OMEGA-3/DHA/EPA/FISH OIL 1,000 MG CAPSULE PO SCH (09:35)
[2021-05-20] MEDS ORDERED: OLAN7.5T22 PO (12:41)
== END 2021-05-20 14:15 | disposition home or self-care (01) | DRG 885 ==
LOC: EMS 15:32 → B3A 20:00
PROVIDERS: ADMIT Psychiatry & Neurology Psychiatry; ATTEND Psychiatry & Neurology Psychiatry
DX: F20.9 Schizophrenia, unspecified (principal); F15.10 Other stimulant abuse, uncomplicated; F17.200 Nicotine dependence, unspecified, uncomplicated; F31.9 Bipolar disorder, unspecified; G47.00 Insomnia, unspecified; D64.9 Anemia, unspecified; Z20.822 Contact with and (suspected) exposure to COVID-19; F19.10 Other psychoactive substance abuse, uncomplicated; Z91.14 Patient's other noncompliance with medication regimen; Z88.1 Allergy status to other antibiotic agents
CPT/HCPCS: 80053; 84702; 85025; 90686; 99285; G0480; J1200; J1630; J2060; Q0162

== ENCOUNTER 2021-07-23 21:30 | Inpatient (IN) | payer OTHER, MEDICAID ==
[~2021-07-23] VITALS: Ht 165.1 cm; Wt 63.6 kg
[~2021-07-23 21:30] MED LIST changes: -CLON0.1T2 PO; -MELA5TAB40 PO; -OLAN5TAB94 PO; +OLAN7.5T22 PO; -OMEG-108 PO; -PROZ20 PO
[2021-07-23 22:07] LABS: COVID AG,FIA SOURCE NASOPHARYNGEAL
[2021-07-23 22:15] LABS: BASOPHILS % (AUTO) 0.5 % (0.0-2.0); EOSINOPHILS % (AUTO) 1.4 % (1.0-6.0); HEMATOCRIT 37.1 % (36-46); HEMOGLOBIN 12.4 g/dL (12.0-16.0); LYMPHOCYTES # (AUTO) 2.2 K/uL (1.0-4.8); LYMPHOCYTES % (AUTO) 35.4 % (22.0-44.0); MEAN CORPUSCULAR HEMOGLOBIN 29.4 pg (26.0-34.0); MEAN CORPUSCULAR HGB CONC 33.5 G/dL (31.0-37.0); MEAN CORPUSCULAR VOLUME 88 fL (80-100); MONOCYTES # (AUTO) 0.6 K/uL (0.1-1.0); MONOCYTES % (AUTO) 10.1 % (2.0-9.0); NEUTROPHILS # (AUTO) 3.3 K/uL (1.8-7.7); NEUTROPHILS % (AUTO) 52.6 % (40.0-70.0); PLATELET COUNT (AUTO) 301 K/uL (150-450); RED BLOOD CELL COUNT(AUTO) 4.23 MIL/uL (4.00-5.20); RED CELL DISTRIBUTION WIDTH 13.2 % (11.5-14.5)
[2021-07-23 22:23] LABS: AMPHET/METH SCREEN,URINE POSITIVE (NEGATIVE); BARBITURATE SCREEN, URINE NEGATIVE (NEGATIVE); BENZODIAZEPINES SCREEN,URINE NEGATIVE (NEGATIVE); CANNABINOID SCREEN,URINE POSITIVE (NEGATIVE); COCAINE SCREEN,URINE NEGATIVE (NEGATIVE); METHADONE SCREEN, URINE NEGATIVE (NEGATIVE); OPIATE SCREEN,URINE POSITIVE (NEGATIVE)
[2021-07-23 22:24] LABS: PHENCYCLIDINE SCREEN,URINE NEGATIVE (NEGATIVE)
[2021-07-23 22:30] LABS: ANION GAP 7 mmol/L (8-16); CALCIUM, TOTAL 9.3 mg/dL (8.8-10.5); CARBON DIOXIDE 30 mmol/L (22-29); CHLORIDE 102 mmol/L (98-107); CREATININE 0.71 mg/dL (0.60-1.30); GLOMERULAR FILTR. RATE CALC > 60 mL/min (>60); GLUCOSE,RANDOM 108 mg/dL (70-110); POTASSIUM 3.4 mmol/L (3.5-5.1); SODIUM SERUM 139 mmol/L (136-145); UREA NITROGEN, BLOOD 16 mg/dL (7-18)
[2021-07-23 22:41] LABS: ALANINE AMINOTRANSFERASE 74 U/L (12-78); ALBUMIN 4.1 g/dL (3.4-5.0); ALKALINE PHOSPHATASE 101 U/L (46-116); ASPARTATE AMINOTRANSFERASE 50 U/L (15-37); BILIRUBIN,TOTAL 0.9 mg/dL (0.1-1.0); HCG,QUANTITATIVE < 1 mIU/mL (0-6); TOTAL PROTEIN, SERUM 7.9 g/dL (6.4-8.2)
[2021-07-23] MEDS ORDERED: OLANZapine 5 MG RAPDIS TABLET PO PRN (23:00)
[2021-07-23] MEDS ORDERED: LORazepam 2 MG TABLET PO PRN (23:00)
[2021-07-23] MEDS: ZOLPIDEM TARTRATE 10 MG TABLET PO PRN (23:09)
[2021-07-24 02:42] LABS: APPEARANCE,URINE TURBID (CLEAR); BILIRUBIN,URINE NEGATIVE (NEGATIVE); GLUCOSE, URINE (UA) NEGATIVE (NEGATIVE); LEUKOCYTE ESTERASE ,URINE LARGE (NEGATIVE); NITRATE,URINE NEGATIVE (NEGATIVE); OCCULT BLOOD,URINE NEGATIVE (NEGATIVE); PROTEIN,URINE 100-200,SEE CONFIRM mg/dL (NEGATIVE); SPECIFIC GRAVITIY, URINE 1.035 (1.003-1.030)
[2021-07-24 02:54] LABS: SULFOSALICYLIC ACID,URINE Negative (Negative)
[2021-07-24 02:55] LABS: BACTERIA,URINE Moderate /HPF (None Seen); WBC,URINE 26-50 /HPF (0-5)
[2021-07-24 02:57] LABS: RBC,URINE 0-2 /HPF (0-2); SQUAMOUS EPITHELIAL CELL,UR Moderate /LPF (None Seen)
[2021-07-25 13:57] VITALS: BP 116/69
[2021-07-25 16:15] VITALS: BP 124/79
[2021-07-26] MEDS: ZOLPIDEM TARTRATE 10 MG TABLET PO PRN (00:02)
[2021-07-26 00:30] VITALS: BP 117/76
[2021-07-26] MEDS ORDERED: PETROLATUM,WHITE 28 GM JELLY TP PRN (06:15)
[2021-07-26] MEDS ORDERED: DOCUSATE SODIUM 100 MG CAPSULE PO PRN (06:15)
[2021-07-26] MEDS ORDERED: CloNIDine HCL 0.1 MG TABLET PO PRN (06:15)
[2021-07-26] MEDS ORDERED: IBUPROFEN 600 MG TABLET PO PRN (06:15)
[2021-07-26] MEDS ORDERED: ACETAMINOPHEN 325 MG TABLET PO PRN (06:15)
[2021-07-26] MEDS ORDERED: MAGNESIUM HYDROXIDE SUSPENSION 30 ML UDCUP PO PRN (06:15)
[2021-07-26] MEDS ORDERED: ONDANSETRON HCL 4 MG TABLET PO PRN (06:15)
[2021-07-26] MEDS ORDERED: POTASSIUM CHLORIDE 20 MEQ ER TABLET PO ONE (06:15)
[2021-07-26] MEDS ORDERED: MAG HYDROX/AL HYDROX/SIMETH ES 30 ML SUSPENSION UDCUP PO PRN (06:15)
[2021-07-26] MEDS ORDERED: BACITRACIN 28 GM OINTMENT TP PRN (06:15)
[2021-07-26] MEDS ORDERED: LOPERAMIDE HCL 2 MG CAPSULE PO PRN (06:15)
[2021-07-26] MEDS ORDERED: BENZOCAINE/MENTHOL LOZENGE PO PRN (06:15)
[2021-07-26] MEDS ORDERED: OMEPRAZOLE 20 MG CAPSULE PO PRN (06:15)
[2021-07-26] MEDS ORDERED: ALBUTEROL SULFATE HFA 90 MCG/PUFF 8 GM INHALER IH PRN (06:15)
[2021-07-26 08:10] VITALS: BP 118/76
[2021-07-26] MEDS: NITROFURANTOIN MONOHYD/M-CRYST 100 MG CAPSULE [MACROBID] PO SCH ×2 (08:12→16:00)
[2021-07-26 16:12] VITALS: BP 124/75
[2021-07-26] MEDS: OLANZapine 7.5 MG TABLET PO SCH (20:08)
[2021-07-27 00:30] VITALS: BP 117/68
[2021-07-27] MEDS: ZOLPIDEM TARTRATE 10 MG TABLET PO PRN (01:32)
[2021-07-27] MEDS: NITROFURANTOIN MONOHYD/M-CRYST 100 MG CAPSULE [MACROBID] PO SCH (09:47)
[2021-07-27] MEDS: CIPROFLOXACIN HCL 250 MG TABLET PO SCH (16:02)
[2021-07-27 16:14] VITALS: BP 111/71
[2021-07-27] MEDS: OLANZapine 7.5 MG TABLET PO SCH (20:05)
[2021-07-28 00:05] VITALS: BP 116/73
[2021-07-28 07:44] LABS: ANION GAP 11 mmol/L (8-16); CALCIUM, TOTAL 9.5 mg/dL (8.8-10.5); CARBON DIOXIDE 23 mmol/L (22-29); CHLORIDE 103 mmol/L (98-107); GLOMERULAR FILTR. RATE CALC > 60 mL/min (>60); GLUCOSE,RANDOM 105 mg/dL (70-110); POTASSIUM 3.9 mmol/L (3.5-5.1); SODIUM SERUM 137 mmol/L (136-145); UREA NITROGEN, BLOOD 15 mg/dL (7-18)
[2021-07-28 08:10] VITALS: BP 106/59
[2021-07-28] MEDS: CIPROFLOXACIN HCL 250 MG TABLET PO SCH ×2 (08:28→16:01)
[2021-07-28] MEDS ORDERED: CIPR250T6 PO (17:08)
[2021-07-28] MEDS ORDERED: OLAN7.5T22 PO (17:18)
== END 2021-07-28 18:18 | disposition home or self-care (01) | DRG 885 ==
LOC: EMS 21:33 → B3A 07-25 10:15
PROVIDERS: ADMIT Psychiatry & Neurology Psychiatry; ATTEND Psychiatry & Neurology Psychiatry
DX: F25.0 Schizoaffective disorder, bipolar type (principal); N39.0 Urinary tract infection, site not specified; R45.851 Suicidal ideations; E87.6 Hypokalemia; F15.10 Other stimulant abuse, uncomplicated; F17.200 Nicotine dependence, unspecified, uncomplicated; F41.9 Anxiety disorder, unspecified; Z20.822 Contact with and (suspected) exposure to COVID-19; G47.00 Insomnia, unspecified; Z78.1 Physical restraint status; Z91.14 Patient's other noncompliance with medication regimen
CPT/HCPCS: 80048; 80053; 81001; 81002; 84702; 85025; 87086; 99285; G0480; Q0162

== ENCOUNTER 2021-11-22 03:44 | Emergency (ER) | payer OTHER ==
[~2021-11-22] VITALS: Ht 165.1 cm; Wt 63.6 kg
[~2021-11-22 03:44] MED LIST changes: +CIPR250T6 PO
[2021-11-22] MEDS ORDERED: OLANZapine 5 MG TABLET ONE (04:39)
[2021-11-22] MEDS ORDERED: LORazepam 1 MG TABLET ONE (04:40)
[2021-11-22] MEDS ORDERED: LORazepam 1 MG TABLET PO ONE (04:45)
[2021-11-22] MEDS ORDERED: OLANZapine 5 MG TABLET PO ONE (04:45)
[2021-11-22 04:48] LABS: BASOPHILS % (AUTO) 0.3 % (0.0-2.0); EOSINOPHILS % (AUTO) 1.3 % (1.0-6.0); HEMATOCRIT 36.8 % (36-46); HEMOGLOBIN 12.5 g/dL (12.0-16.0); LYMPHOCYTES # (AUTO) 2.1 K/uL (1.0-4.8); LYMPHOCYTES % (AUTO) 30.3 % (22.0-44.0); MEAN CORPUSCULAR HEMOGLOBIN 29.5 pg (26.0-34.0); MEAN CORPUSCULAR HGB CONC 33.9 G/dL (31.0-37.0); MEAN CORPUSCULAR VOLUME 87 fL (80-100); MONOCYTES # (AUTO) 0.5 K/uL (0.1-1.0); MONOCYTES % (AUTO) 6.7 % (2.0-9.0); NEUTROPHILS # (AUTO) 4.2 K/uL (1.8-7.7); NEUTROPHILS % (AUTO) 61.4 % (40.0-70.0); PLATELET COUNT (AUTO) 336 K/uL (150-450); RED BLOOD CELL COUNT(AUTO) 4.22 MIL/uL (4.00-5.20); RED CELL DISTRIBUTION WIDTH 12.7 % (11.5-14.5)
[2021-11-22 04:54] LABS: APPEARANCE,URINE CLEAR (CLEAR); BILIRUBIN,URINE NEGATIVE (NEGATIVE); GLUCOSE, URINE (UA) NEGATIVE (NEGATIVE); KETONES,URINE NEGATIVE (NEGATIVE); LEUKOCYTE ESTERASE ,URINE NEGATIVE (NEGATIVE); NITRATE,URINE NEGATIVE (NEGATIVE); OCCULT BLOOD,URINE NEGATIVE (NEGATIVE); PH,URINE 7.5 (5.0-8.0); PROTEIN,URINE TRACE mg/dL (NEGATIVE); SPECIFIC GRAVITIY, URINE 1.028 (1.003-1.030)
[2021-11-22 04:57] LABS: ANION GAP 6 mmol/L (8-16); CALCIUM, TOTAL 9.6 mg/dL (8.8-10.5); CARBON DIOXIDE 29 mmol/L (22-29); CHLORIDE 101 mmol/L (98-107); CREATININE 0.66 mg/dL (0.60-1.30); GLUCOSE,RANDOM 115 mg/dL (70-110); SODIUM SERUM 136 mmol/L (136-145); UREA NITROGEN, BLOOD 11 mg/dL (7-18)
[2021-11-22 05:01] LABS: GLOMERULAR FILTR. RATE CALC > 60 mL/min (>60)
[2021-11-22 05:01] LABS: AMPHET/METH SCREEN,URINE POSITIVE (NEGATIVE); BARBITURATE SCREEN, URINE NEGATIVE (NEGATIVE); BENZODIAZEPINES SCREEN,URINE NEGATIVE (NEGATIVE); CANNABINOID SCREEN,URINE NEGATIVE (NEGATIVE); COCAINE SCREEN,URINE NEGATIVE (NEGATIVE); METHADONE SCREEN, URINE NEGATIVE (NEGATIVE); OPIATE SCREEN,URINE NEGATIVE (NEGATIVE); PHENCYCLIDINE SCREEN,URINE NEGATIVE (NEGATIVE)
[2021-11-22 05:02] LABS: ALANINE AMINOTRANSFERASE 57 U/L (12-78); ALBUMIN 4.1 g/dL (3.4-5.0); ALKALINE PHOSPHATASE 104 U/L (46-116); ASPARTATE AMINOTRANSFERASE 45 U/L (15-37); BILIRUBIN,TOTAL 0.5 mg/dL (0.1-1.0); TOTAL PROTEIN, SERUM 8.1 g/dL (6.4-8.2)
[2021-11-22 07:39] VITALS: BP 131/90
== END 2021-11-22 08:53 | disposition home or self-care (01) ==
LOC: EMS 03:45
DX: F25.0 Schizoaffective disorder, bipolar type (principal); F15.10 Other stimulant abuse, uncomplicated; F31.9 Bipolar disorder, unspecified; F17.210 Nicotine dependence, cigarettes, uncomplicated; F19.90 Other psychoactive substance use, unspecified, uncomplicated; Z88.1 Allergy status to other antibiotic agents
CPT/HCPCS: 99283; 80053; 84703; 85025; 36415; 80307; 81003; G0480

== ENCOUNTER 2022-01-08 19:20 | Emergency (ER) | payer OTHER ==
[~2022-01-08] VITALS: Ht 167.6 cm; Wt 65.0 kg
[2022-01-08 21:50] LABS: BASOPHILS % (AUTO) 0.6 % (0.0-2.0); EOSINOPHILS % (AUTO) 1.9 % (1.0-6.0); HEMATOCRIT 35.4 % (36-46); HEMOGLOBIN 11.7 g/dL (12.0-16.0); LYMPHOCYTES # (AUTO) 2.5 K/uL (1.0-4.8); LYMPHOCYTES % (AUTO) 39.2 % (22.0-44.0); MEAN CORPUSCULAR HEMOGLOBIN 29.1 pg (26.0-34.0); MEAN CORPUSCULAR VOLUME 88 fL (80-100); MONOCYTES # (AUTO) 0.6 K/uL (0.1-1.0); MONOCYTES % (AUTO) 8.9 % (2.0-9.0); NEUTROPHILS # (AUTO) 3.1 K/uL (1.8-7.7); NEUTROPHILS % (AUTO) 49.4 % (40.0-70.0); PLATELET COUNT (AUTO) 345 K/uL (150-450); RED BLOOD CELL COUNT(AUTO) 4.01 MIL/uL (4.00-5.20); RED CELL DISTRIBUTION WIDTH 12.7 % (11.5-14.5)
[2022-01-08 22:01] LABS: ANION GAP 8 mmol/L (8-16); CALCIUM, TOTAL 9.5 mg/dL (8.8-10.5); CARBON DIOXIDE 29 mmol/L (22-29); CHLORIDE 99 mmol/L (98-107); CREATININE 0.74 mg/dL (0.60-1.30); GLOMERULAR FILTR. RATE CALC > 60 mL/min (>60); GLUCOSE,RANDOM 102 mg/dL (70-110); POTASSIUM 3.4 mmol/L (3.5-5.1); SODIUM SERUM 136 mmol/L (136-145); UREA NITROGEN, BLOOD 12 mg/dL (7-18)
[2022-01-08 22:06] LABS: ALANINE AMINOTRANSFERASE 47 U/L (12-78); ALBUMIN 3.7 g/dL (3.4-5.0); ALKALINE PHOSPHATASE 107 U/L (46-116); BILIRUBIN,TOTAL 0.6 mg/dL (0.1-1.0); TOTAL PROTEIN, SERUM 8.1 g/dL (6.4-8.2)
[2022-01-08 22:14] LABS: ASPARTATE AMINOTRANSFERASE 43 U/L (15-37)
[2022-01-09 06:11] VITALS: BP 120/74
== END 2022-01-09 06:20 | disposition home or self-care (01) ==
LOC: EMS 19:20
DX: F11.90 Opioid use, unspecified, uncomplicated (principal); F25.0 Schizoaffective disorder, bipolar type; H92.01 Otalgia, right ear; F31.9 Bipolar disorder, unspecified; F15.10 Other stimulant abuse, uncomplicated; F17.210 Nicotine dependence, cigarettes, uncomplicated; F19.90 Other psychoactive substance use, unspecified, uncomplicated; Z88.1 Allergy status to other antibiotic agents
CPT/HCPCS: 99283; 80053; 85025; 36415; G0480

== ENCOUNTER 2022-01-23 10:04 | Emergency (ER) | payer OTHER | END 2022-01-23 10:40 | disposition left against medical advice (07) | LOC: EMS 10:07 | DX: Z53.21 Procedure and treatment not carried out due to patient leaving prior to being seen by health care provider (principal) ==